=== PATIENT | female | born 1975 | race Caucasian/White ===

== ENCOUNTER 2016-04-17 14:30 | Emergency (ER) | payer OTHER ==
[2016-04-17 14:57] VITALS: RESP 20; TEMP 97.9
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
[2016-04-17] MEDS ORDERED: IBUPROFEN 400 MG TAB PO STA (15:52)
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
[2016-04-17 17:02] VITALS: BP 110/55; PULSE 82
== END 2016-04-17 17:01 | disposition home or self-care (01) ==
LOC: EC 14:30
DX: M25.512 Pain in left shoulder (principal); M54.5 Low back pain; M25.571 Pain in right ankle and joints of right foot; R51 Headache; J45.909 Unspecified asthma, uncomplicated; M79.7 Fibromyalgia; G40.909 Epilepsy, unspecified, not intractable, without status epilepticus; E07.9 Disorder of thyroid, unspecified; F31.9 Bipolar disorder, unspecified; F41.9 Anxiety disorder, unspecified; F41.0 Panic disorder [episodic paroxysmal anxiety]; F43.10 Post-traumatic stress disorder, unspecified; F17.200 Nicotine dependence, unspecified, uncomplicated; Z85.41 Personal history of malignant neoplasm of cervix uteri; Z79.899 Other long term (current) drug therapy; Z88.0 Allergy status to penicillin; Z88.1 Allergy status to other antibiotic agents; Z88.2 Allergy status to sulfonamides; Z88.5 Allergy status to narcotic agent; Z88.8 Allergy status to other drugs, medicaments and biological substances; Z88.6 Allergy status to analgesic agent; Z91.048 Other nonmedicinal substance allergy status; V89.2XXA Person injured in unspecified motor-vehicle accident, traffic, initial encounter; Y92.89 Other specified places as the place of occurrence of the external cause
CPT/HCPCS: 70450; 72050; 72100; 72125; 99284

== ENCOUNTER 2016-05-03 10:35 | Emergency (ER) | payer OTHER ==
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
[2016-05-03 12:31] VITALS: BP 100/61; PULSE 84; RESP 14; TEMP 97.6
== END 2016-05-03 12:32 | disposition home or self-care (01) ==
LOC: EC 10:35
DX: F07.81 Postconcussional syndrome (principal); M79.1 Myalgia; G89.29 Other chronic pain; J45.909 Unspecified asthma, uncomplicated; M79.7 Fibromyalgia; G40.909 Epilepsy, unspecified, not intractable, without status epilepticus; E07.9 Disorder of thyroid, unspecified; F31.9 Bipolar disorder, unspecified; F41.9 Anxiety disorder, unspecified; F41.0 Panic disorder [episodic paroxysmal anxiety]; F43.10 Post-traumatic stress disorder, unspecified; F17.200 Nicotine dependence, unspecified, uncomplicated; Z79.51 Long term (current) use of inhaled steroids; Z79.899 Other long term (current) drug therapy; Z88.0 Allergy status to penicillin; Z88.1 Allergy status to other antibiotic agents; Z88.2 Allergy status to sulfonamides; Z88.5 Allergy status to narcotic agent; Z88.6 Allergy status to analgesic agent; Z91.09 Other allergy status, other than to drugs and biological substances
CPT/HCPCS: 99284

== ENCOUNTER 2018-08-28 14:14 | Emergency (ER) | payer OTHER ==
[2018-08-28 14:23] VITALS: BP 124/41; PULSE 109; RESP 18; TEMP 98.6
[2018-08-28] MEDS ORDERED: SODIUM CHLORIDE 0.9% 1,000 ML IV ONE (15:01)
[2018-08-28] MEDS ORDERED: MORPHINE SULFATE 4 MG/ML SYRINGE IV STA (15:01)
[2018-08-28] MEDS ORDERED: ONDANSETRON 4 MG/2 ML VIAL IVP STA (15:01)
[2018-08-28 15:39] LABS: Basophils % (A) 0 %; Eosinophils # (A) 0.1 k/uL (0-0.7); Eosinophils % (A) 2 %; HCT 41.6 % (34.0-46.0); Lymphocytes # (A) 1.5 k/uL (1.0-4.8); Lymphocytes % (A) 24 %; MCHC 33.7 g/dL (31.0-37.0); MCV 85.9 fL (80.0-100.0); Mean Platelet Volume 7.9; Monocytes # (A) 0.4 k/uL (0-1.0); Monocytes % (A) 6 %; Neutrophils # (A) 4.1 k/uL (1.3-7.7); Neutrophils % (A) 65 %; Platelet Count 221 k/uL (150-450); RBC 4.85 m/uL (3.80-5.40); RDW 14.1 % (11.5-15.5); WBC 6.3 k/uL (3.8-10.6)
[2018-08-28 15:49] LABS: ALT 22 U/L (9-52); AST 24 U/L (14-36); African American GFR (CKD) >90 (>60 ml/min/1.73 sqM); Albumin 3.9 g/dL (3.5-5.0); Alkaline Phosphatase 127 U/L (38-126); Anion Gap 9 mmol/L; Blood Urea Nitrogen 9 mg/dL (7-17); Calcium 9.8 mg/dL (8.4-10.2); Carbon Dioxide 24 mmol/L (22-30); Chloride 107 mmol/L (98-107); Glucose 97 mg/dL (74-99); Potassium 3.9 mmol/L (3.5-5.1); Sodium 140 mmol/L (137-145); Total Bilirubin 0.6 mg/dL (0.2-1.3); Total Protein 6.4 g/dL (6.3-8.2)
[2018-08-28 15:53] LABS: Appearance,Urine Clear (Clear); Bilirubin,Urine Negative (Negative); Blood,Urine Negative (Negative); Color,Urine Light Yellow; Glucose,Urine (UA) Negative (Negative); Ketones,Urine Negative (Negative); Leukocyte Esterase,Urine Negative (Negative); Nitrite,Urine Negative (Negative); Protein,Urine Negative (Negative); Specific Gravity,Urine 1.009 (1.001-1.035); Urobilinogen,Urine <2.0 mg/dL (<2.0)
--- NOTE | 2018-08-28 15:57 | ED ---
General Adult HPI - General Chief complaint: Urogenital Stated complaint: Female /pain Time Seen by Provider: 08/28/18 14:43 Source: patient Mode of arrival: ambulatory Limitations: no limitations - History of Present Illness Initial comments: 42-year-old female patient presents to the emergency department today for evaluation of suprapubic pain. Patient states that she has been having some discomfort over the last 2 days but around 2:00 this morning the pain intensified. Patient states it is sharp stabbing pain to suprapubic region. Patient states the pain is unbearable. States that has caused her to be nauseated but she has not vomited. Patient is status post appendectomy and hysterectomy including cervix. Patient denies any abnormal vaginal bleeding or discharge. Denies any constipation or diarrhea. She has no fever or chills. Patient denies any dyspareunia leading up to the onset of pain. Patient denies any recent rash, fever, chills, shortness breath, chest pain, back pain, numbness, tingling, dizziness, weakness, hematuria, dysuria, urinary urgency, urinary frequency, headache, visual changes, or any other complaints. - Related Data Home Medications Medication Instructions Recorded Confirmed Acyclovir [Zovirax] 400 mg PO BID 06/30/13 05/03/16 Loratadine [Claritin] 10 mg PO HS 06/30/13 05/03/16 rOPINIRole HCL [Requip] 1 mg PO HS 06/30/13 05/03/16 Albuterol Inhaler [Ventolin Hfa 1 - 2 puff INHALATION RT-Q4H PRN 07/14/13 05/03/16 Inhaler] tiZANidine HCL [Zanaflex] 4 - 8 mg PO QID PRN 07/14/13 05/03/16 Cholecalciferol [Vitamin D3 (25 2,000 unit PO DAILY 06/15/14 05/03/16 Mcg = 1000 Iu)] Furosemide [Lasix] 20 mg PO DAILY 12/01/14 05/03/16 Multivitamins, Thera [Multivitamin 1 tab PO DAILY 12/01/14 05/03/16 (formulary)] Omeprazole [PriLOSEC] 20 mg PO AC-BRKFST 12/01/14 05/03/16 Potassium Chloride [Klor-Con 20] 20 meq PO DAILY 12/01/14 05/03/16 oxyCODONE HCL/ACETAMINOPHEN 1 tab PO BID PRN 12/01/14 05/03/16 [Percocet 5-325 mg] Diazepam [Valium] 5 mg PO BID PRN 12/02/14 05/03/16 Gabapentin 400 mg PO TID 12/02/14 05/03/16 Krill/Om-3/Dha/Epa/Phospho/Ast 1 cap PO DAILY 05/31/15 05/03/16 [[place]-3 Krill Oil 300 mg Sfgl] Menthol [Biofreeze] 1 applic TOPICAL DAILY 05/31/15 05/03/16 Pyridoxine [Vitamin B-6] 50 mg PO DAILY 05/31/15 05/03/16 Triamcinolone Acetonide [Nasacort] 1 spray EA NOSTRIL DAILY 05/31/15 05/03/16 Vitamin E (Dl,Tocopheryl Acet) 400 unit PO DAILY 05/31/15 05/03/16 [Vitamin E] lamoTRIgine [LaMICtal] 25 mg PO QID 05/31/15 05/03/16 levETIRAcetam [Keppra] 500 mg PO BID 05/31/15 05/03/16 traMADol HCL [Ultram] 50 mg PO Q4HR PRN 05/31/15 05/03/16 Previous Rx's Medication Instructions Recorded Acetaminophen [Tylenol] 325 mg PO Q4H 5 Days tab 04/17/16 Ibuprofen [Motrin] 200 - 400 mg PO Q6HR 7 Days tab 04/17/16 Hydrocodone/Acetaminophen [[place] 1 each PO Q6HR PRN #10 tab 05/03/16 5-325] Naproxen [EC-Naprosyn] 500 mg PO BID PRN #30 tablet. 08/28/18 Allergies Allergy/AdvReac Type Severity Reaction Status Date / Time ampicillin Allergy Anaphylaxis Verified 08/28/18 14:18 cefaclor [From Ceclor] Allergy Rash/Hives Verified 08/28/18 14:18 Penicillins Allergy Anaphylaxis Verified 08/28/18 14:18 sulfamethoxazole Allergy Unknown Verified 08/28/18 14:18 [From Bactrim] trimethoprim [From Bactrim] Allergy Unknown Verified 08/28/18 14:18 codeine phosphate AdvReac SEVERE Verified 08/28/18 14:18 [From Tylenol-Codeine #3] CONSTIPATION duloxetine HCl AdvReac Confusion Verified 08/28/18 14:18 [From Cymbalta] pregabalin [From Lyrica] AdvReac Confusion Verified 08/28/18 14:18 PAPER TAPE Allergy Swelling,RA Uncoded 05/31/15 10:23 SH TYLENOL #4 AdvReac SEVERE Uncoded 05/31/15 10:23 CONSTIPATION Review of Systems ROS Statement: Those systems with pertinent positive or pertinent negative responses have been documented in the HPI. ROS Other: All systems not noted in ROS Statement are negative. Past Medical History Past Medical History: Asthma, Cancer, Fibromyalgia, Memory Impairment, Seizure Disorder, Thyroid Disorder Additional Past Medical History / Comment(s): GALLSTONES,CERVICAL CANCER,EMPHYSEMA, abscess right breast, chronic falls History of Any Multi-Drug Resistant Organisms: None Reported Past Surgical History: Appendectomy, Hernia Repair, Hysterectomy, Tubal Ligation Additional Past Surgical History / Comment(s): UMBILICAL HERNIA, HEMMO RIODECTOMY, bladder SUSPENSION, Hand surgery bilateral fo, 2015 TUMOR REMOVED FROM NECK Past Anesthesia/Blood Transfusion Reactions: No Reported Reaction Past Psychological History: Anxiety, Bipolar, Depression, Panic Disorder, PTSD Smoking Status: Current every day smoker Past Alcohol Use History: Rare Past Drug Use History: Marijuana - Past Family History Mother Family Medical History: Cancer General Exam Limitations: no limitations General appearance: alert, in no apparent distress, other (This is a well- developed, well-nourished adult female patient in no acute distress. Vital signs upon presentation are temperature 98.6F, pulse 109, respirations 18, blood pressure 124/41, pulse ox 98% on room air.) Eye exam: Present: normal appearance, PERRL, EOMI. Absent: scleral icterus, conjunctival injection, periorbital swelling ENT exam: Present: normal exam, normal oropharynx, mucous membranes moist Respiratory exam: Present: normal lung sounds bilaterally. Absent: respiratory distress, wheezes, rales, rhonchi, stridor Cardiovascular Exam: Present: regular rate, normal rhythm, normal heart sounds. Absent: systolic murmur, diastolic murmur, rubs, gallop, clicks GI/Abdominal exam: Present: soft, tenderness (Suprapubic tenderness), normal bowel sounds, other (Mild guarding). Absent: distended, guarding, rebound, rigid Neurological exam: Present: alert, oriented X3, CN II-XII intact Psychiatric exam: Present: normal affect, normal mood Skin exam: Present: warm, dry, intact, normal color. Absent: rash Course Vital Signs 08/28/18 14:18 Temperature 98.6 F Pulse Rate 109 H Respiratory 18 Rate Blood Pressure 124/41 O2 Sat by Pulse 98 Oximetry Medical Decision Making - Medical Decision Making 42-year-old female patient presents to the emergency department today for evaluation of suprapubic abdominal pain. Physical examination did reveal some suprapubic tenderness. No flank tenderness. Labs reviewed and were unremarkable. Urinalysis shows no sign of infection. Patient is status post hysterectomy including cervix. Pelvic exam was performed and did reveal white vaginal discharge, this was sent for culture. CT abdomen and pelvis was obtained and did show evidence for bladder calculus may be at the UVJ. There is no evidence for hydronephrosis or hydroureter. I did discuss findings and results with the patient. She'll be discharged home with pain medication prescription. She is instructed follow with the primary care physician for recheck as soon as possible. Return parameters were discussed in detail. She verbalizes understanding and agrees this plan. - Lab Data Result diagrams: 08/28/18 15:30 08/28/18 15:30 Lab Results 08/28/18 08/28/18 08/28/18 Range/Units 15:30 15:30 15:30 WBC 6.3 (3.8-10.6) k/uL RBC 4.85 (3.80-5.40) m/uL Hgb 14.0 (11.4-16.0) gm/dL Hct 41.6 (34.0-46.0) % MCV 85.9 (80.0-100.0) fL MCH 29.0 (25.0-35.0) pg MCHC 33.7 (31.0-37.0) g/dL RDW 14.1 (11.5-15.5) % Plt Count 221 (150-450) k/uL Neutrophils % 65 % Lymphocytes % 24 % Monocytes % 6 % Eosinophils % 2 % Basophils % 0 % Neutrophils # 4.1 (1.3-7.7) k/uL Lymphocytes # 1.5 (1.0-4.8) k/uL Monocytes # 0.4 (0-1.0) k/uL Eosinophils # 0.1 (0-0.7) k/uL Basophils # 0.0 (0-0.2) k/uL Sodium 140 (137-145) mmol/L Potassium 3.9 (3.5-5.1) mmol/L Chloride 107 (98-107) mmol/L Carbon Dioxide 24 (22-30) mmol/L Anion Gap 9 mmol/L BUN 9 (7-17) mg/dL Creatinine 0.30 L (0.52-1.04) mg/dL Est GFR (CKD-EPI)AfAm >90 (>60 ml/min/1.73 sqM) Est GFR (CKD-EPI)NonAf >90 (>60 ml/min/1.73 sqM) Glucose 97 (74-99) mg/dL Calcium 9.8 (8.4-10.2) mg/dL Total Bilirubin 0.6 (0.2-1.3) mg/dL AST 24 (14-36) U/L ALT 22 (9-52) U/L Alkaline Phosphatase 127 H (38-126) U/L Total Protein 6.4 (6.3-8.2) g/dL Albumin 3.9 (3.5-5.0) g/dL Urine Color Urine Appearance (Clear) Urine pH (5.0-8.0) Ur Specific Ubly (1.001-1.035) Urine Protein (Negative) Urine Glucose (UA) (Negative) Urine Ketones (Negative) Urine Blood (Negative) Urine Nitrite (Negative) Urine Bilirubin (Negative) Urine Urobilinogen (<2.0) mg/dL Ur Leukocyte Esterase (Negative) Trichomonas Ag (Rapid) Negative (Negative) 08/28/18 Range/Units 15:30 WBC (3.8-10.6) k/uL RBC (3.80-5.40) m/uL Hgb (11.4-16.0) gm/dL Hct (34.0-46.0) % MCV (80.0-100.0) fL MCH (25.0-35.0) pg MCHC (31.0-37.0) g/dL RDW (11.5-15.5) % Plt Count (150-450) k/uL Neutrophils % % Lymphocytes % % Monocytes % % Eosinophils % % Basophils % % Neutrophils # (1.3-7.7) k/uL Lymphocytes # (1.0-4.8) k/uL Monocytes # (0-1.0) k/uL Eosinophils # (0-0.7) k/uL Basophils # (0-0.2) k/uL Sodium (137-145) mmol/L Potassium (3.5-5.1) mmol/L Chloride (98-107) mmol/L Carbon Dioxide (22-30) mmol/L Anion Gap mmol/L BUN (7-17) mg/dL Creatinine (0.52-1.04) mg/dL Est GFR (CKD-EPI)AfAm (>60 ml/min/1.73 sqM) Est GFR (CKD-EPI)NonAf (>60 ml/min/1.73 sqM) Glucose (74-99) mg/dL Calcium (8.4-10.2) mg/dL Total Bilirubin (0.2-1.3) mg/dL AST (14-36) U/L ALT (9-52) U/L Alkaline Phosphatase (38-126) U/L Total Protein (6.3-8.2) g/dL Albumin (3.5-5.0) g/dL Urine Color Light Yellow Urine Appearance Clear (Clear) Urine pH 6.0 (5.0-8.0) Ur Specific Ubly 1.009 (1.001-1.035) Urine Protein Negative (Negative) Urine Glucose (UA) Negative (Negative) Urine Ketones Negative (Negative) Urine Blood Negative (Negative) Urine Nitrite Negative (Negative) Urine Bilirubin Negative (Negative) Urine Urobilinogen <2.0 (<2.0) mg/dL Ur Leukocyte Esterase Negative (Negative) Trichomonas Ag (Rapid) (Negative) - Radiology Data Radiology results: report reviewed, image reviewed CT abdomen and pelvis was obtained with contrast. Report reviewed in its entirety. Impression by Dr. Dangelo shows urinary bladder calculus on the right side. This appears new compared to old exam. This could be at the ureterovesical junction but no hydroureter seen. Disposition Clinical Impression: Suprapubic pain, Bladder calculus Disposition: HOME SELF-CARE Condition: Good Instructions (If sedation given, give patient instructions): Abdominal Pain (ED) Additional Instructions: Increase fluids. Take medication as directed. Follow-up with your primary care physician for recheck in 1-2 days. Return to the emergency department immediately for any new, worsening, or concerning symptoms. Prescriptions: Naproxen [EC-Naprosyn] 500 mg PO BID PRN #30 tablet.dr ZIMMER Reason: Pain Is patient prescribed a controlled substance at d/c from ED?: No Referrals: Chiquita Caba MD [STAFF PHYSICIAN] - 1-2 days Time of Disposition: 17:44
--- NOTE | 2018-08-28 16:53 | CT ---
EXAMINATION TYPE: CT abdomen pelvis w con DATE OF EXAM: 08/28/2018 COMPARISON: 06/23/2011 HISTORY: Pelvic pain CT DLP: 504.6 mGycm Automated exposure control for dose reduction was used. TECHNIQUE: Helical acquisition of images was performed from the lung bases through the pelvis. CONTRAST: Performed without Oral Contrast and with IV Contrast, patient injected with 100 mL of Isovue 300. FINDINGS: Lung bases are clear. There is no pleural effusion. Heart size is normal. Liver spleen pancreas gallbladder appear normal. Bile ducts are not dilated. Stomach appears normal. There is a 1 cm dense calcification or metallic surgical clip at the posterior aspect of the spleen. Unchanged. There is no adrenal mass. Kidneys show satisfactory contrast opacification. There is no hydronephrosi s. Bladder distends smoothly. Ureters are not dilated. There is hysterectomy. There is 5 mm calcifica tion in the posterior urinary bladder on the right side of midline. This could be at the ureterovesic al junction. Right ureter however does not appear dilated and there is normal right-sided renal funct ion. There is no free fluid in the pelvis. There is no inguinal hernia. There is no evidence of a pelvic m ass. Appendix is not seen. There is no sign of thickened appendix. There is no mesenteric edema. There is no ascites or free air. There is no sign of a bowel obstructio n. Lumbar vertebra have normal spacing and alignment. Bony pelvis is intact. There is no evidence of bony destructive process. IMPRESSION: THERE IS URINARY BLADDER CALCULUS ON THE RIGHT SIDE. THIS APPEARS NEW COMPARED TO OLD EXAM. THIS COUL D BE AT THE URETEROVESICAL JUNCTION BUT NO HYDROURETER SEEN.
[2018-08-30 14:04] LABS: N. gonorrhoeae,PCR Negative (Neg,Equiv); Neisseria Source Vagina
[2018-08-30 14:20] LABS: C. trachomatis,PCR Negative (Neg,Equiv); Chlamydia trachomatis Source Vagina
== END 2018-08-28 18:50 | disposition home or self-care (01) ==
LOC: EC 14:14
DX: N21.0 Calculus in bladder (principal); J45.909 Unspecified asthma, uncomplicated; M79.7 Fibromyalgia; G40.909 Epilepsy, unspecified, not intractable, without status epilepticus; F17.200 Nicotine dependence, unspecified, uncomplicated; Z85.41 Personal history of malignant neoplasm of cervix uteri; Z90.49 Acquired absence of other specified parts of digestive tract; Z90.710 Acquired absence of both cervix and uterus; Z98.51 Tubal ligation status; Z98.890 Other specified postprocedural states; Z87.19 Personal history of other diseases of the digestive system; Z79.899 Other long term (current) drug therapy; Z88.1 Allergy status to other antibiotic agents; Z88.0 Allergy status to penicillin; Z88.2 Allergy status to sulfonamides; Z88.5 Allergy status to narcotic agent; Z88.8 Allergy status to other drugs, medicaments and biological substances; Z91.048 Other nonmedicinal substance allergy status; Z88.6 Allergy status to analgesic agent
CPT/HCPCS: 36415; 80053; 85025; 81003; 87808; 87491; 87591; 87070; 87205; 74177; 99284; 96374; 96375; 96361 ×3; J2270; J2405; Q9967

== ENCOUNTER → 2022-12-10 | Outpatient (CLI) | payer OTHER ==
--- NOTE | 2022-12-10 19:01 | CT ---
EXAMINATION TYPE: CT brain wo con CT DLP: 1047.1 mGycm, Automated exposure control for dose reduction was used. DATE OF EXAM: 12/10/2022 5:08 PM COMPARISON: 04/17/2016. CLINICAL INDICATION:Female, 47 years old with history of R20.0 ANESTHESIA OF SKIN, History of MS. Abiola ient had thyroid removed last month and states that she has had low energy levels and dizziness since surgery. TECHNIQUE: Brain: Axial CT images of the brain were obtained with coronal and sagittal reformats created and rev iewed. Contrast used: None. Oral contrast used: None. FINDINGS: Brain: Extra-axial spaces: No abnormal extra-axial fluid collections. Ventricular system: Within normal limits Cerebral parenchyma: No acute intraparenchymal hemorrhage or mass effect. The curran-white junction is well differentiated. Cerebellum: Unremarkable. Mass effect: No evidence of midline shift. Intracranial vasculature: unremarkable Soft tissues: Normal. Calvarium/osseous structures: No depressed skull fracture. Paranasal sinuses and mastoid air cells: Mild scattered paranasal sinus disease. Visualized orbits: Orbital contents are intact. IMPRESSION: No acute intracranial process.
== END | disposition home or self-care (01) ==
LOC: RADCTMAIN 16:50
PROVIDERS: ATTEND Student in an Organized Health Care Education/Training Program
DX: R20.0 Anesthesia of skin (principal)
CPT/HCPCS: 70450

== ENCOUNTER → 2022-12-30 | Outpatient (CLI) | payer OTHER ==
[2022-12-30 13:34] VITALS: BP 103/50; PULSE 82; RESP 16; TEMP 98.3
--- NOTE | 2022-12-30 15:05 | P.PAINPG ---
PQRS Measure Charge Sheet Comment: HISTORY OF PRESENT ILLNESS: A 47 yr old female as a referral from Dr Chun presents today w severe and chronic LBP secondary to DDD, spondylosis and facet arthropathy without myelopathy for evaluation. Pt states pain level is provoked at 6 /10 in intensity, constant, localized in the mid to lower lumbar spine, predominantly axial, achy in character w shooting pain towards the BLEs. Pain is provoked by weight bearing activity. Pain is alleviated by medications (Methadone 50mg QAM at [facility]), repositioning and rest. Oswestry axial pain score at 32. PMH: OA, Asthma, Emphysema, Cervical CA, Fibromyalgia, Memory Impairment, Seizure Disorder, Hypothyroid Disorder, GERD, Gall Stones, Bipolar/ MDD/ Anxiety PSH: Cervical CA, Appendectomy, Umbilical Hernia Repair, Hysterectomy, Tubal Ligation, Thyroidectomy, Hemorrhoidectomy, Bladder Suspension, BL Hand Surgery, Cervical Mass Excision SH: Daily tobacco use, Rare ETOH use, Cannabis use FH: Mo- CA All: See list Meds: See list REVIEW OF ORGAN SYSTEMS: CONSTITUTIONAL: No fevers or chills. No recent weight loss . NEUROLOGICAL: + numbness and tingling along the distal extremities. No seizure disorders or headaches. MUSCULOSKELETAL: + pain PSYCHIATRIC: Denies current depression or suicidal thoughts. Physical Examinations : Constitutional : Cooperative , not in acute distress . Neurologic : Cranial nerve II to XII intact. No focal neurological deficits. Psychiatric : alert & oriented x 3. Matching mood & appropriate affect. Judgment & insight intact. Musculoskeletal : Cervical Spine Motor strength in the deltoid and biceps: Normal right side. Normal Left side Motor strength biceps and the wrist ext ensors: Normal right side . Normal left side Motor strength in the triceps muscle: Normal right side. Normal left side Deep tendon reflexes: Normal at the biceps. Normal at Brachioradialis. Normal at triceps Vertebral body tenderness to deep palpation over Cervical facet loading test: positive bilaterally Spurling test: positive bilaterally Neck distraction test: positive bilaterally Sandhya sign: positive bilaterally Lumbar spine Motor strength lower extremities ,thigh and legs 5/5 Right side , 5/5 Left side Deep tendon reflexes : Normal Knee Jerk. Normal Ankle Jerk Vertebral body tenderness over Jordan Test positive Lumbar facet Loading Test: positive Right / positive Left Range of motion of the lumbar spine Flexion 30 degrees, extension 10 degrees Straight Leg Raise test: Left/ Right positive at degree Micaela test: positive right / positive left. Severe tenderness over the Sacroiliac joint on the Right / Left sides Gaenslen test: positive bilaterally Seated flexion test: positive bilaterally. Sacral spine : Severe tenderness over the Sacroiliac joint: right side / left side Range of motion: Flexion of the lumbar spine <60 degrees Range of motion: Extension of the lumbar spine <20 degrees Gaenslen's Test positive Micaela test: positive right side / left side Thigh Thrust Test Sacral Thrust Test Imaging: None on file Assessment/ Plan : Lumbar DDD Obtaining records. DARIEN form signed and faxed to [facility] in [facility]. PT x 6 wks M51.36, Lumbar x-ray M51.36 May need additional testing if indicated. All questions answered. I have spent greater than 30 minutes on patient care today. Dr Mercado was available by phone for the evaluation of this patient. The time was used to review the medical records including relevant urine studies and Prescription history (MAPs), review of the available imaging, evaluation and examination of the patient, coordination of care with the medical staff and if applicable referring physicians, as well as creation of the medical record PQRS Narrative: Smoking Status Current every day smoker Narcotic Agreement Date Signed 08/27/13 Home Medications: Ambulatory Orders Acyclovir [Zovirax] 400 mg PO BID 06/30/13 Loratadine [Claritin] 10 mg PO HS 06/30/13 rOPINIRole HCL [Requip] 1 mg PO HS 06/30/13 Albuterol Inhaler [Ventolin Hfa Inhaler] 1 - 2 puff INHALATION RT-Q4H PRN 07/14/13 tiZANidine HCL [Zanaflex] 4 - 8 mg PO QID PRN 07/14/13 Cholecalciferol [Vitamin D3 (25 Mcg = 1000 Iu)] 2,000 unit PO DAILY 06/15/14 Furosemide [Lasix] 20 mg PO DAILY 12/01/14 Multivitamins, Thera [Multivitamin (formulary)] 1 tab PO DAILY 12/01/14 Omeprazole [PriLOSEC] 20 mg PO AC-BRKFST 12/01/14 Potassium Chloride [Klor-Con 20] 20 meq PO DAILY 12/01/14 oxyCODONE HCL/ACETAMINOPHEN [Percocet 5-325 mg] 1 tab PO BID PRN 12/01/14 Diazepam [Valium] 5 mg PO BID PRN 12/02/14 Gabapentin 400 mg PO TID 12/02/14 Krill/Om-3/Dha/Epa/Phospho/Ast [[place]-3 Krill Oil 300 mg Sfgl] 1 cap PO DAILY 05/31/15 Menthol [Biofreeze] 1 applic TOPICAL DAILY 05/31/15 Pyridoxine [Vitamin B-6] 50 mg PO DAILY 05/31/15 Triamcinolone Acetonide [Nasacort] 1 spray EA NOSTRIL DAILY 05/31/15 Vitamin E (Dl,Tocopheryl Acet) [Vitamin E] 400 unit PO DAILY 05/31/15 lamoTRIgine [LaMICtal] 25 mg PO QID 05/31/15 levETIRAcetam [Keppra] 500 mg PO BID 05/31/15 traMADol HCL [Ultram] 50 mg PO Q4HR PRN 05/31/15 Acetaminophen [Tylenol] 325 mg PO Q4H 5 Days tab 04/17/16 Ibuprofen [Motrin] 200 - 400 mg PO Q6HR 7 Days tab 04/17/16 Hydrocodone/Acetaminophen [[place] 5-325] 1 each PO Q6HR PRN #10 tab 05/03/16 Naproxen [EC-Naprosyn] 500 mg PO BID PRN #30 tablet. 08/28/18 Controlled Substance Measures - Controlled Substance Measures Is patient prescribed a controlled substance at discharge?: No
== END ==
LOC: PNWHC3 12:14
PROVIDERS: ATTEND Specialist
DX: G89.4 Chronic pain syndrome (principal); J43.9 Emphysema, unspecified; M19.90 Unspecified osteoarthritis, unspecified site; M79.7 Fibromyalgia; E03.9 Hypothyroidism, unspecified; K21.9 Gastro-esophageal reflux disease without esophagitis; F31.9 Bipolar disorder, unspecified; F41.9 Anxiety disorder, unspecified; Z87.19 Personal history of other diseases of the digestive system; Z86.69 Personal history of other diseases of the nervous system and sense organs; Z85.848 Personal history of malignant neoplasm of other parts of nervous tissue; Z88.0 Allergy status to penicillin; Z72.0 Tobacco use; Z88.8 Allergy status to other drugs, medicaments and biological substances; Z88.2 Allergy status to sulfonamides; Z88.1 Allergy status to other antibiotic agents; Z88.5 Allergy status to narcotic agent; Z91.048 Other nonmedicinal substance allergy status; Z79.899 Other long term (current) drug therapy
CPT/HCPCS: 99211

== ENCOUNTER → 2023-04-28 | Outpatient (CLI) | payer OTHER ==
--- NOTE | 2023-04-28 15:30 | XR ---
EXAMINATION TYPE: XR lumbar spine 3V DATE OF EXAM: 04/28/2023 Comparison: 04/17/2016 Clinical History: 47-year-old female M51.36OTHER INTERVERTEBRAL DISC DEGENERATION, LUMB Findings: There is some type of metallic clip projecting at the posterior left upper quadrant. Moderate overall spinal wording. 5 lumbar type vertebral bodies. Vertebral body heights are preserved and alignment i s maintained. Facet arthropathy lower lumbar spine. Impression: Facet arthropathy lower lumbar spine. No vertebral compression collapse or malalignment. Moderate sto ol burden. Some type of metallic clip projecting at the posterior left upper quadrant.
== END | disposition home or self-care (01) ==
LOC: RADXRMAIN 14:37
PROVIDERS: ATTEND Physician Assistant Medical
DX: M47.817 Spondylosis without myelopathy or radiculopathy, lumbosacral region (principal); M51.36 Other intervertebral disc degeneration, lumbar region
CPT/HCPCS: 72100

== ENCOUNTER → 2023-04-28 | Outpatient (CLI) | payer OTHER ==
[2023-04-28 14:05] VITALS: BP 110/66; PULSE 89; RESP 15; TEMP 98.4
--- NOTE | 2023-04-28 14:22 | P.PAINPG ---
PQRS Measure Charge Sheet Comment: HISTORY OF PRESENT ILLNESS: A 47 yr old female presents today w severe and chronic LBP secondary to DDD, spondylosis and facet arthropathy without myelopathy for evaluation. She states she goes to [facility] in [place], [place] who has upped her Methadone to 85mg QAM. Her last dose was this morning. We have submitted DARIEN form to that clinic in Dec 2022 but have no records in her chart. She states she was also hospitalized w "3 heart attacks" recently. She states that she will follow up w Dr Gonsales, her group fitness manager. Pt states pain level is provoked at 6 /10 in intensity, constant, localized in the mid to lower lumbar spine, predominantly axial, achy in character w shooting pain towards the BLEs. Pain is provoked by weight bearing activity. Pain is alleviated by PT x 6 wks total (Dec - Feb), medications, repositioning and rest. Oswestry axial pain score at 32. Interventional procedures include Medications include Methadone 50mg QAM from [facility], Cannabis use REVIEW OF ORGAN SYSTEMS: CONSTITUTIONAL: No fevers or chills. No recent weight loss. NEUROLOGICAL: + numbness and tingling along the distal extremities. No seizure disorders or headaches. MUSCULOSKELETAL: + pain PSYCHIATRIC: Denies current depression or suicidal thoughts. Physical Examinations : Constitutional : Cooperative , not in acute distress . Neurologic : Cranial nerve II to XII intact. No focal neurological deficits. Psychiatric : alert & oriented x 3. Matching mood & appropriate affect. Judgment & insight intact. Musculoskeletal : Cervical Spine Motor strength in the deltoid and biceps: Normal right side. Normal Left side Motor strength biceps and the wrist extensors: Normal right side . Normal left side Motor strength in the triceps muscle: Normal right side. Normal left side Deep tendon reflexes: Normal at the biceps. Normal at Brachioradialis. Normal at triceps Vertebral body tenderness to deep palpation over Cervical facet loading test: positive bilaterally Spurling test: positive bilaterally Neck distraction test: positive bilaterally Sandhya sign: positive bilaterally Lumbar spine Motor strength lower extremities ,thigh and legs 5/5 Right side , 5/5 Left side Deep tendon reflexes : Normal Knee Jerk. Normal Ankle Jerk Vertebral body tenderness over Jordan Test positive Lumbar facet Loading Test: positive Right / positive Left Range of motion of the lumbar spine Flexion 30 degrees, extension 10 degrees Straight Leg Raise test: Left/ Right positive at degree Micaela test: positive right / positive left. Severe tenderness over the Sacroiliac joint on the Right / Left sides Gaenslen test: positive bilaterally Seated flexion test: positive bilaterally. Sacral spine : Severe tenderness over the Sacroiliac joint: right side / left side Range of motion: Flexion of the lumbar spine <60 degrees Range of motion: Extension of the lumbar spine <20 degrees Gaenslen's Test positive Micaela test: positive right side / left side Thigh Thrust Test Sacral Thrust Test Imaging: None on file Assessment/ Plan : Lumbar DDD Awaiting records. Lumbar x ray M51.36 May need additional testing if clinically indicated. All questions answered. I have spent greater than 30 minutes on patient care today. Dr Mercado was available by phone for the evaluation of this patient. The time was used to review the medical records including relevant urine studies and Prescription history (MAPs), review of the available imaging, evaluation and examination of the patient, coordination of care with the medical staff and if applicable referring physicians, as well as creation of the medical record PQRS Narrative: Smoking Status Current every day smoker Narcotic Agreement Date Signed 08/27/13 Hx Alcohol Use (MH) No Home Medications: Ambulatory Orders Acyclovir [Zovirax] 400 mg PO BID 06/30/13 Loratadine [Claritin] 10 mg PO HS 06/30/13 rOPINIRole HCL [Requip] 1 mg PO HS 06/30/13 Albuterol Inhaler [Ventolin Hfa Inhaler] 1 - 2 puff INHALATION RT-Q4H PRN 07/14/13 tiZANidine HCL [Zanaflex] 4 - 8 mg PO QID PRN 07/14/13 Cholecalciferol [Vitamin D3 (25 Mcg = 1000 Iu)] 2,000 unit PO DAILY 06/15/14 Furosemide [Lasix] 20 mg PO DAILY 12/01/14 Multivitamins, Thera [Multivitamin (formulary)] 1 tab PO DAILY 12/01/14 Omeprazole [PriLOSEC] 20 mg PO AC-BRKFST 12/01/14 Potassium Chloride [Klor-Con 20] 20 meq PO DAILY 12/01/14 oxyCODONE HCL/ACETAMINOPHEN [Percocet 5-325 mg] 1 tab PO BID PRN 12/01/14 Diazepam [Valium] 5 mg PO BID PRN 12/02/14 Gabapentin 400 mg PO TID 12/02/14 Krill/Om-3/Dha/Epa/Phospho/Ast [[place]-3 Krill Oil 300 mg Sfgl] 1 cap PO DAILY 05/31/15 Menthol [Biofreeze] 1 applic TOPICAL DAILY 05/31/15 Pyridoxine [Vitamin B-6] 50 mg PO DAILY 05/31/15 Triamcinolone Acetonide [Nasacort] 1 spray EA NOSTRIL DAILY 05/31/15 Vitamin E (Dl,Tocopheryl Acet) [Vitamin E] 400 unit PO DAILY 05/31/15 lamoTRIgine [LaMICtal] 25 mg PO QID 05/31/15 levETIRAcetam [Keppra] 500 mg PO BID 05/31/15 traMADol HCL [Ultram] 50 mg PO Q4HR PRN 05/31/15 Acetaminophen [Tylenol] 325 mg PO Q4H 5 Days tab 04/17/16 Ibuprofen [Motrin] 200 - 400 mg PO Q6HR 7 Days tab 04/17/16 Hydrocodone/Acetaminophen [[place] 5-325] 1 each PO Q6HR PRN #10 tab 05/03/16 Naproxen [EC-Naprosyn] 500 mg PO BID PRN #30 tablet. 08/28/18 Controlled Substance Measures - Controlled Substance Measures Is patient prescribed a controlled substance at discharge?: No
== END ==
LOC: PNWHC3 13:10
PROVIDERS: ATTEND Specialist
DX: M51.36 Other intervertebral disc degeneration, lumbar region (principal); F17.200 Nicotine dependence, unspecified, uncomplicated; Z88.1 Allergy status to other antibiotic agents; Z88.0 Allergy status to penicillin; Z88.8 Allergy status to other drugs, medicaments and biological substances; Z91.048 Other nonmedicinal substance allergy status; Z88.5 Allergy status to narcotic agent; Z88.2 Allergy status to sulfonamides
CPT/HCPCS: 99211

== ENCOUNTER → 2023-05-12 | Outpatient (CLI) | payer OTHER ==
--- NOTE | 2023-05-12 17:48 | CT ---
EXAMINATION TYPE: CT lumbar spine wo con CT DLP: 516.8 mGycm, Automated exposure control for dose reduction was used. DATE OF EXAM: 05/12/2023 5:15 PM COMPARISON: . CLINICAL INDICATION:Female, 47 years old with history of M51.36 OTHER INTERVERTEBRAL DISC DEGENERATIO N, LUM, h/o MS and disc degeneration, pain down both legs and feet TECHNIQUE: Multiple axial images were obtained from the midportion of T11 through the sacroiliac amilcar nts. Soft tissue and bone windows in coronal and sagittal planes were obtained and reviewed. 3-D ref ormats of the bones were created on a separate workstation and submitted for review. Contrast used: mL of , (None, if empty). Oral contrast used: (None, if empty). FINDINGS: Alignment: There are 5 lumbar type vertebral bodies within normal alignment. Bone: No evidence of fracture is identified. Multilevel degeneration changes with osteophyte formati on, disc space narrowing, facet joint arthropathy. Discs: T12-L1: No spinal canal or neural foraminal stenosis is identified. L1-L2: No spinal canal or neural foraminal stenosis is identified. L2-L3: No spinal canal or neural foraminal stenosis is identified. L3-L4: Facet joint arthropathy and disc bulging result with mild spinal canal stenosis and mild bilat eral neural foraminal stenosis. L4-L5: Facet joint arthropathy and disc bulging result with mild spinal canal stenosis and mild bilat eral neural foraminal stenosis. L5-S1: Facet joint arthropathy and disc bulging result with mild spinal canal stenosis and mild bilat eral neural foraminal stenosis. Other: None IMPRESSION: 1. No evidence for spinal fracture. 2. No evidence for significant spinal canal or neural foraminal stenosis.
== END | disposition home or self-care (01) ==
LOC: RADCTMAIN 16:54
PROVIDERS: ATTEND Specialist
DX: M51.36 Other intervertebral disc degeneration, lumbar region (principal)
CPT/HCPCS: 72131

== ENCOUNTER → 2023-06-18 | Outpatient (CLI) | payer OTHER ==
[2023-06-18 11:37] VITALS: BP 114/65; PULSE 75; RESP 16; TEMP 98.2
--- NOTE | 2023-06-18 13:38 | P.PAINPG ---
PQRS Measure Charge Sheet Comment: HISTORY OF PRESENT ILLNESS: A 47 yr old female presents today w severe and chronic LBP > 12 yrs secondary to DDD, spondylosis and facet arthropathy without myelopathy for medication refills. Pt stated she has discontinued Cannabis. Pt states pain level is provoked at 6 /10 in intensity, constant, localized in the mid to lower lumbar spine, predominantly axial, achy in character w shooting pain towards the BLEs. Pain is provoked by weight bearing activity. Pain is alleviated by PT x 6 wks total (Dec - Feb), physician guided exercises daily since Feb 2023, medications, repositioning and rest. Oswestry axial pain score at 31. Interventional procedures include Medications include Methadone 50mg QAM from [place], Hx of Cannabis use REVIEW OF ORGAN SYSTEMS: CONSTITUTIONAL: No fevers or chills. No recent weight loss. NEUROLOGICAL: + numbness and tingling along the distal extremities. No seizure disorders or headaches. MUSCULOSKELETAL: + pain PSYCHIATRIC: Denies current depression or suicidal th oughts. Physical Examinations : Constitutional : Cooperative , not in acute distress . Neurologic : Cranial nerve II to XII intact. No focal neurological deficits. Psychiatric : alert & oriented x 3. Matching mood & appropriate affect. Judgment & insight intact. Musculoskeletal : Cervical Spine Motor strength in the deltoid and biceps: Normal right side. Normal Left side Motor strength biceps and the wrist extensors: Normal right side . Normal left side Motor strength in the triceps muscle: Normal right side. Normal left side Deep tendon reflexes: Normal at the biceps. Normal at Brachioradialis. Normal at triceps Vertebral body tenderness to deep palpation over Cervical facet loading test: positive bilaterally Spurling test: positive bilaterally Neck distraction test: positive bilaterally Sandhya sign: positive bilaterally Lumbar spine Motor strength lower extremities ,thigh and legs 5/5 Right side , 5/5 Left side Deep tendon reflexes : Normal Knee Jerk. Normal Ankle Jerk Vertebral body tenderness over Jordan Test positive Taut bands w twitch response over BL L 2-S1 Lumbar facet Loading Test: positive Right / positive Left Range of motion of the lumbar spine Flexion 30 degrees, extension 10 degrees Straight Leg Raise test: Left/ Right positive at degree Micaela test: positive right / positive left. Severe tenderness over the Sacroiliac joint on the Right / Left sides Gaenslen test: positive bilaterally Seated flexion test: positive bilaterally. Sacral spine : Severe tenderness over the Sacroiliac joint: right side / left side Range of motion: Flexion of the lumbar spine <60 degrees Range of motion: Extension of the lumbar spine <20 degrees Gaenslen's Test positive Micaela test: positive right side / left side Thigh Thrust Test Sacral Thrust Test Imaging: None on file Assessment/ Plan : Lumbar DDD Recommendation of BL L2-S1 TPIs and medication management. May need a series of injections for optimal pain relief. Risks, benefits of procedure discussed and pt verbalized understanding. Methadone tab 20mg TID #60 w 1 RF. Opiate/ Narcotic agreement signed Apr 2023. Will check UDS at next visit. Use, side effects, adverse reactions, safe storage discussed. All questions answered. I have spent greater than 30 minutes on patient care today. Dr Mercado was available by phone for the evaluation of this patient. The time was used to review the medical records including relevant urine studies and Prescription history (MAPs), review of the available imaging, evaluation and examination of the patient, coordination of care with the medical staff and if applicable referring physicians, as well as creation of the medical record - Pain Location Bilateral Medial Back Non-Pharmacological Interventions: Heat, Inactivity PQRS Narrative: Smoking Status Current every day smoker Narcotic Agreement Date Signed 08/27/13 Hx Alcohol Use (MH) No Home Medications: Ambulatory Orders Acyclovir [Zovirax] 400 mg PO BID 06/30/13 Loratadine [Claritin] 10 mg PO HS 06/30/13 rOPINIRole HCL [Requip] 1 mg PO HS 06/30/13 Albuterol Inhaler [Ventolin Hfa Inhaler] 1 - 2 puff INHALATION RT-Q4H PRN 07/14/13 tiZANidine HCL [Zanaflex] 4 - 8 mg PO QID PRN 07/14/13 Cholecalciferol [Vitamin D3 (25 Mcg = 1000 Iu)] 2,000 unit PO DAILY 06/15/14 Furosemide [Lasix] 20 mg PO DAILY 12/01/14 Multivitamins, Thera [Multivitamin (formulary)] 1 tab PO DAILY 12/01/14 Omeprazole [PriLOSEC] 20 mg PO AC-BRKFST 12/01/14 Potassium Chloride [Klor-Con 20] 20 meq PO DAILY 12/01/14 oxyCODONE HCL/ACETAMINOPHEN [Percocet 5-325 mg] 1 tab PO BID PRN 12/01/14 Diazepam [Valium] 5 mg PO BID PRN 12/02/14 Gabapentin 400 mg PO TID 12/02/14 Krill/Om-3/Dha/Epa/Phospho/Ast [[place]-3 Krill Oil 300 mg Sfgl] 1 cap PO DAILY 05/31/15 Menthol [Biofreeze] 1 applic TOPICAL DAILY 05/31/15 Pyridoxine [Vitamin B-6] 50 mg PO DAILY 05/31/15 Triamcinolone Acetonide [Nasacort] 1 spray EA NOSTRIL DAILY 05/31/15 Vitamin E (Dl,Tocopheryl Acet) [Vitamin E] 400 unit PO DAILY 05/31/15 lamoTRIgine [LaMICtal] 25 mg PO QID 05/31/15 levETIRAcetam [Keppra] 500 mg PO BID 05/31/15 traMADol HCL [Ultram] 50 mg PO Q4HR PRN 05/31/15 Acetaminophen [Tylenol] 325 mg PO Q4H 5 Days tab 04/17/16 Ibuprofen [Motrin] 200 - 400 mg PO Q6HR 7 Days tab 04/17/16 Hydrocodone/Acetaminophen [[place] 5-325] 1 each PO Q6HR PRN #10 tab 05/03/16 Naproxen [EC-Naprosyn] 500 mg PO BID PRN #30 tablet. 08/28/18 Methadone HCl 10 mg PO TID 30 Days #180 tab 06/18/23 Methadone HCl 10 mg PO TID 30 Days #180 tab 06/18/23 Controlled Substance Measures - Controlled Substance Measures Is patient prescribed a controlled substance at discharge?: Yes When asked, does pt state using other controlled substances?: No If prescribed controlled substance>3 days was MAPS reviewed?: Yes If Rx opioid, was Start Talking consent form obtained?: Yes Was information provided regarding opioid addiction?: Yes
== END ==
LOC: PNWHC3 10:36
PROVIDERS: ATTEND Specialist
DX: M51.37 Other intervertebral disc degeneration, lumbosacral region (principal); M47.817 Spondylosis without myelopathy or radiculopathy, lumbosacral region; G89.29 Other chronic pain; F17.200 Nicotine dependence, unspecified, uncomplicated; Z88.1 Allergy status to other antibiotic agents; Z88.0 Allergy status to penicillin; Z88.2 Allergy status to sulfonamides; Z88.5 Allergy status to narcotic agent; Z91.048 Other nonmedicinal substance allergy status; Z88.8 Allergy status to other drugs, medicaments and biological substances
CPT/HCPCS: 99211

== ENCOUNTER 2023-06-24 10:57 | Day surgery (SDC) | payer OTHER ==
[2023-06-19 13:50] VITALS: BMI 24.7
[~2023-06-24 10:57] MED LIST: LACTATED RINGERS 1,000 ML IV SCH
[2023-06-24] MEDS ORDERED: ROPIVACAINE 5MG/ML 20ML VIAL ONE (12:06)
[2023-06-24] MEDS ORDERED: methylPREDNISolone ACETATE 40 MG/ML 1 ML VIAL ONE (12:06)
--- NOTE | 2023-06-24 12:09 | P.PCN ---
Date of Procedure: 06/24/23 Surgeon: Jeff Mulligan Pathology: none sent Condition: stable Disposition: PACU Description of Procedure: Name of procedure: Trigger point injection Diagnosis: Myofascial pain Anesthesia: None Description of procedure: The patient was seen in the preop holding area the trigger points were marked on both sides of the lower lumbar spine. the targeted muscles were the paravertebral musculature bilaterally in the lower lumbar spine area at the target points that were marked in the preoperative area..the patient was brought into the procedure room after signing his procedure consent. vital signs were monitored. She was placed in the prone position. Skin was prepped with ChloraPrep. I used 25-gauge 1 and 1/2 inch needle to go through the skin at the marked points and injected 1 mL of a solution made up of 11 MLS of ropivacaine 0.5% +40 mg of Kenalog and 1 mL of the solution was injected at each trigger point with a total of 12 trigger points injected. Patient tolerated procedure well.
[2023-06-24 12:10] VITALS: TEMP 97.8
[2023-06-24 12:55] VITALS: BP 111/56; PULSE 73; RESP 16
== END 2023-06-24 12:45 | disposition home or self-care (01) ==
LOC: ORPAIN 10:57
PROVIDERS: ATTEND Anesthesiology
DX: M79.18 Myalgia, other site (principal)
CPT/HCPCS: 20553; J2795; J1010; 20552

== ENCOUNTER → 2023-08-11 | Outpatient (CLI) | payer OTHER ==
[2023-08-11 11:24] VITALS: BP 114/75; PULSE 83; RESP 16
--- NOTE | 2023-08-11 15:01 | P.PAINPG ---
PQRS Measure Charge Sheet Comment: HISTORY OF PRESENT ILLNESS: A 47 yr old female presents today w severe and chronic LBP > 12 yrs secondary to DDD, spondylosis and facet arthropathy without myelopathy for medication refills and evaluation s/p BL TPI L2-S1 #1. Pt stated she experienced 50 % pain relief x 2 wks s/p procedure. Pt states pain level is provoked at 6 /10 in intensity, constant, localized in the mid to lower lumbar spine, predominantly axial, throbbing in character w shooting pain towards the BLEs L > R. Pain is provoked by weight bearing activity. Pain is alleviated by PT x 6 wks total (Dec - Feb), physician guided exercises daily since Feb 2023, medications, repositioning and rest. Oswestry axial pain score at 31. Interventional procedures include BL TPIs L2-S1 x1 Medications include Methadone 50mg QAM from [place], Hx of Cannabis use REVIEW OF ORGAN SYSTEMS: CONSTITUTIONAL: No fevers or chills. No recent weight loss. NEUROLOGICAL: + numbness and tingling along the distal extremities. No seizure disorders or headaches. MUSCULOSKELETAL: + pain PSYCHIATRIC: Denies current depression or suicidal thoughts. Physical Examinations : Constitutional : Cooperative , not in acute distress . Neurologic : Cranial nerve II to XII intact. No focal neurological deficits. Psychiatric : alert & oriented x 3. Matching mood & appropriate affect. Judgment & insight intact. Musculoskeletal : Cervical Spine Motor strength in the deltoid and biceps: Normal right side. Normal Left side Motor strength biceps and the wrist extensors: Normal right side . Normal left side Motor strength in the triceps muscle: Normal right side. Normal left side Deep tendon reflexes: Normal at the biceps. Normal at Brachioradialis. Normal at triceps Vertebral body tenderness to deep palpation over Cervical facet loading test: positive bilaterally Spurling test: positive bilaterally Neck distraction test: positive bilaterally Sandhya sign: positive bilaterally Lumbar spine Motor strength lower extremities ,thigh and legs 5/5 Right side , 5/5 Left side Deep tendon reflexes : Normal Knee Jerk. Normal Ankle Jerk Vertebral body tenderness over Jordan Test positive Taut bands w twitch response over BL L2-S1 Lumbar facet Loading Test: positive Right / positive Left Range of motion of the lumbar spine Flexion 30 degrees, extension 10 degrees Straight Leg Raise test: Left/ Right positive at degree Micaela test: positive right / positive left. Severe tenderness over the Sacroiliac j oint on the Right / Left sides Gaenslen test: positive bilaterally Seated flexion test: positive bilaterally. Sacral spine : Severe tenderness over the Sacroiliac joint: right side / left side Range of motion: Flexion of the lumbar spine <60 degrees Range of motion: Extension of the lumbar spine <20 degrees Gaenslen's Test positive Micaela test: positive right side / left side Thigh Thrust Test Sacral Thrust Test Imaging: None on file Assessment/ Plan : Lumbar DDD Recommendation of medication management. Methadone tab 10mg TID (2 tabs PO TID) #180 w 1 RF. Opiate/ Narcotic agreement signed 04/30/23. UDS pending. Use, side effects, adverse reactions, safe storage discussed. All questions answered. I have spent greater than 30 minutes on patient care today. Dr Mercado was available by phone for the evaluation of this patient. The time was used to review the medical records including relevant urine studies and Prescription history (MAPs), review of the available imaging, evaluation and examination of the patient, coordination of care with the medical staff and if applicable referring physicians, as well as creation of the medical record - Pain Location Lower Back Pharmacological Interventions: Medication PQRS Narrative: Smoking Status Current every day smoker Narcotic Agreement Date Signed 08/27/13 Hx Alcohol Use (MH) No Home Medications: Ambulatory Orders Acyclovir [Zovirax] 400 mg PO BID 06/30/13 Albuterol Inhaler [Ventolin Hfa Inhaler] 1 - 2 puff INHALATION RT-Q4H PRN 07/14/13 Cholecalciferol [Vitamin D3 (25 Mcg = 1000 Iu)] 2,000 unit PO DAILY 06/15/14 Multivitamins, Thera [Multivitamin (formulary)] 1 tab PO DAILY 12/01/14 Omeprazole [PriLOSEC] 20 mg PO AC-BRKFST 12/01/14 lamoTRIgine [LaMICtal] 25 mg PO QID 05/31/15 levETIRAcetam [Keppra] 500 mg PO BID 05/31/15 Acetaminophen [Tylenol Extra Strength] 1,000 mg PO Q8H PRN 06/19/23 Albuterol Inhaler [Ventolin Hfa Inhaler] 1 - 2 puff INHALATION Q6H PRN 06/19/23 Amitriptyline HCl [Elavil] 100 mg PO HS 06/19/23 Aspirin EC [Ecotrin Low Dose] 81 mg PO DAILY 06/19/23 Budesonide/Formoterol Fumarate [Symbicort 160-4.5 Mcg Inhaler] 1 puff INHALATION DAILY 06/19/23 Cetirizine HCl [Zyrtec] 10 mg PO DAILY 06/19/23 Ergocalciferol [Vitamin D2 (1250 Mcg = 76151 Iu)] 1,250 mcg PO WE 06/19/23 Levothyroxine Sodium [Euthyrox] 137 mcg PO DAILY 06/19/23 atenoloL [Tenormin] 25 mg PO DAILY 06/19/23 busPIRone HCl [Buspar] 10 mg PO TID 06/19/23 lisinopriL [Zestril] 10 mg PO DAILY 06/19/23 rOPINIRole HCL [Requip] 2 mg PO HS 06/19/23 Methadone HCl 10 mg PO TID 30 Days #180 tab 08/11/23 Methadone HCl 10 mg PO TID 30 Days #180 tab 08/11/23 Controlled Substance Measures - Controlled Substance Measures Is patient prescribed a controlled substance at discharge?: Yes When asked, does pt state using other controlled substances?: No If prescribed controlled substance>3 days was MAPS reviewed?: Yes
== END ==
LOC: PNWHC3 10:16
PROVIDERS: ATTEND Specialist
DX: M51.37 Other intervertebral disc degeneration, lumbosacral region (principal); M47.817 Spondylosis without myelopathy or radiculopathy, lumbosacral region; F17.200 Nicotine dependence, unspecified, uncomplicated; Z88.1 Allergy status to other antibiotic agents; Z88.0 Allergy status to penicillin; Z88.8 Allergy status to other drugs, medicaments and biological substances; Z88.2 Allergy status to sulfonamides; Z91.048 Other nonmedicinal substance allergy status; Z88.5 Allergy status to narcotic agent
CPT/HCPCS: 99211

== ENCOUNTER 2023-08-27 17:35 | Inpatient (IN) | payer OTHER ==
--- NOTE | 2023-08-27 19:44 | ED ---
Back Pain HPI - General Chief Complaint: Back Pain/Injury Stated Complaint: Hip and back pain, numbness Time Seen by Provider: 08/27/23 19:14 Source: patient Limitations: no limitations - History of Present Illness Initial Comments: 47-year-old female with a past medical history significant for MS and chronic low back pain secondary to degenerative disc disease, spondylosis, facet arthropathy without myelopathy on methadone from [place] with an opioid/narcotic agreement presenting to the ED with complaints of lower back pain/hip pain. Patient denies any recent injury or trauma. Follows with Dr. Mercado of pain management. Does not follow with orthopedics. Patient states over the past few weeks has developed worsening pain of her lower back and hips. Also notes approximately 2 weeks ago started to experience paresthesias of her left lower extremity beginning in her toes week or so now started to experience paresthesias right lower extremity as well. Patient notes a longstanding history of urinary incontinence however she reports that she has been struggling to hold her urine in more in the the past few weeks as well. Denies bowel incontinence. Denies saddle anesthesia. Of note, patient reports she has leftover clips from surgery in her abdomen and at [facility] unsure if she can have MRI secondary to this. Patient states that she is less worried about the pain then she is worried about the paresthesias. - Related Data Home Medications Medication Instructions Recorded Confirmed Acyclovir [Zovirax] 400 mg PO BID 06/30/13 08/11/23 Albuterol Inhaler [Ventolin Hfa 1 - 2 puff INHALATION RT-Q4H PRN 07/14/13 08/11/23 Inhaler] Cholecalciferol [Vitamin D3 (25 2,000 unit PO DAILY 06/15/14 08/11/23 Mcg = 1000 Iu)] Multivitamins, Thera [Multivitamin 1 tab PO DAILY 12/01/14 08/11/23 (formulary)] Omeprazole [PriLOSEC] 20 mg PO AC-BRKFST 12/01/14 08/11/23 lamoTRIgine [LaMICtal] 25 mg PO QID 05/31/15 08/11/23 levETIRAcetam [Keppra] 500 mg PO BID 05/31/15 08/11/23 Acetaminophen [Tylenol Extra 1,000 mg PO Q8H PRN 06/19/23 08/11/23 Strength] Albuterol Inhaler [Ventolin Hfa 1 - 2 puff INHALATION Q6H PRN 06/19/23 08/11/23 Inhaler] Amitriptyline HCl [Elavil] 100 mg PO HS 06/19/23 08/11/23 Aspirin EC [Ecotrin Low Dose] 81 mg PO DAILY 06/19/23 08/11/23 Budesonide/Formoterol Fumarate 1 puff INHALATION DAILY 06/19/23 08/11/23 [Symbicort 160-4.5 Mcg Inhaler] Cetirizine HCl [Zyrtec] 10 mg PO DAILY 06/19/23 08/11/23 Ergocalciferol [Vitamin D2 (1250 1,250 mcg PO WE 06/19/23 08/11/23 Mcg = 97910 Iu)] Levothyroxine Sodium [Euthyrox] 137 mcg PO DAILY 06/19/23 08/11/23 atenoloL [Tenormin] 25 mg PO DAILY 06/19/23 08/11/23 busPIRone HCl [Buspar] 10 mg PO TID 06/19/23 08/11/23 lisinopriL [Zestril] 10 mg PO DAILY 06/19/23 08/11/23 rOPINIRole HCL [Requip] 2 mg PO HS 06/19/23 08/11/23 Previous Rx's Medication Instructions Recorded Methadone HCl 20 mg PO TID 30 Days #90 tab 08/18/23 Methadone HCl 20 mg PO TID 30 Days #90 tablet 08/18/23 Allergies Allergy/AdvReac Type Severity Reaction Status Date / Time ampicillin Allergy Anaphylaxis Verified 08/27/23 17:45 cefaclor [From Ceclor] Allergy Rash/Hives Verified 08/27/23 17:45 Penicillins Allergy Anaphylaxis Verified 08/27/23 17:45 sulfamethoxazole Allergy Unknown Verified 08/27/23 17:45 [From Bactrim] trimethoprim [From Bactrim] Allergy Unknown Verified 08/27/23 17:45 codeine phosphate AdvReac SEVERE Verified 08/27/23 17:45 [From Tylenol-Codeine #3] CONSTIPATION duloxetine HCl AdvReac Confusion Verified 08/27/23 17:45 [From Cymbalta] pregabalin [From Lyrica] AdvReac Confusion Verified 08/27/23 17:45 PAPER TAPE Allergy Swelling,RA Uncoded 08/11/23 10:43 SH TYLENOL #4 AdvReac SEVERE Uncoded 08/11/23 10:43 CONSTIPATION Review of Systems ROS Statement: Those systems with pertinent positive or pertinent negative responses have been documented in the HPI. ROS Other: All systems not noted in ROS Statement are negative. Past Medical History Past Medical History: Asthma, Cancer, CVA/TIA, Fibromyalgia, GERD/Reflux, Hypertension, Memory Impairment, Seizure Disorder, Thyroid Disorder Additional Past Medical History / Comment(s): GALLSTONES,CERVICAL CANCER,EMPHYSEMA, chronic falls, GRAVE'S DISEASE, TIA 2011, MS, THYROID EYE DISE ASE, DDD History of Any Multi-Drug Resistant Organisms: None Reported Past Surgical History: Appendectomy, Bladder Surgery, Hernia Repair, Hysterectom y, Orthopedic Surgery, Tubal Ligation Additional Past Surgical History / Comment(s): UMBILICAL HERNIA, HEMORRIODECTOMY, bladder SUSPENSION, Hand surgery bilateral , 2014 TUMOR REMOVED FROM NECK, THYROIDECTOMY, LT SHOULDER ROTATOR CUFF REPAIR-HAS PIN, CYST REMOVED FROM RT BREAST, COLONOSCOPY/EGD Past Anesthesia/Blood Transfusion Reactions: No Reported Reaction Past Psychological History: Anxiety, Bipolar, Depression, Panic Disorder, PTSD Smoking Status: Current every day smoker Past Alcohol Use History: None Reported Past Drug Use History: None Reported, Marijuana - Past Family History Mother Family Medical History: Cancer General Exam Limitations: no limitations General appearance: alert, in no apparent distress Eye exam: Present: normal appearance Neck exam: Present: normal inspection Respiratory exam: Present: normal lung sounds bilaterally Cardiovascular Exam: Present: regular rate GI/Abdominal exam: Present: soft, normal bowel sounds. Absent: distended, tenderness, guarding, rebound, rigid Rectal exam: Present: other (Exam chaperoned by Paulette WASHBURN, did show somewhat decreased rectal tone.) Extremities exam: Present: other (Strength and sensation intact in bilateral lower extremities. Patient noted some decrease sensation in the webspace between the left first and second toe.) Neurological exam: Present: alert, oriented X3 Skin exam: Present: warm, dry Course Vital Signs 08/27/23 17:42 Temperature 98.9 F Pulse Rate 71 Respiratory 18 Rate Blood Pressure 122/74 O2 Sat by Pulse 93 L Oximetry Medical Decision Making - Medical Decision Making Was pt. sent in by a medical professional or institution (NACHO Paz, VACUUM CLEANER MECHANIC, urgent care, hospital, or correction...) When possible be specific @ -No Did you speak to anyone other than the patient for history (EMS, parent, family, police, friend...)? What history was obtained from this source @ -No Did you review nursing and triage notes (agree or disagree)? Why? @ -I reviewed and agree with nursing and triage notes Were old charts reviewed (outside hosp., previous admission, EMS record, old EKG, old radiological studies, urgent care reports/EKG's, correction records)? Report findings @ -No old charts were reviewed Differential Diagnosis (chest pain, altered mental status, abdominal pain women, abdominal pain men, vaginal bleeding, weakness, fever, dyspnea, syncope, headache, dizziness, GI bleed, back pain, seizure, CVA, palpatations, mental health, musculoskeletal)? @ -Differential Musculoskeletal Muscular strain, contusion, ligament sprain, fracture, arthritis, septic arthritis, bursitis, cellulitis, muscle spasm, nerve compression, DVT, arterial occlusion, herpes zoster, electrolyte abnormality, tumor.... This is not meant to be in all inclusive list EKG interpreted by me (3pts min.). @ -None X-rays interpreted by me (1pt min.). @ -None done CT interpreted by me (1pt min.). @ -CT of the lumbar spine pending. U/S interpreted by me (1pt. min.). @ -None done What testing was considered but not performed or refused? (CT, X-rays, U/S, labs)? Why? @ -None What meds were considered but not given or refused? Why? @ -None Did you discuss the management of the patient with other professionals (professionals i.e. NACHO Paz, V[employer] CLEANER MECHANIC, lab, RT, psych nurse, social work supervisor, global marketing coordinator, teacher, transit authority police officer, watch case polisher)? Give summary @ -Case discussed with Bailey, who accepts admission under [facility]. Was smoking cessation discussed for >3mins.? @ -No Was critical care preformed (if so, how long)? @ -No Were there social determinants of health that impacted care today? How? (Homelessness, low income, unemployed, alcoholism, drug addiction, transportation, low edu. Level, literacy, decrease access to med. care, senior care, rehab)? @ -No Was there de-escalation of care discussed even if they declined (Discuss DNR or withdrawal of care, Hospice)? DNR status @ -No What co-morbidities impacted this encounter? (DM, HTN, Smoking, COPD, CAD, Cancer, CVA, ARF, Chemo, Hep., AIDS, mental health diagnosis, sleep apnea, morbid obesity)? @ -MS, chronic back pain Was patient admitted / discharged? Hospital course, mention meds given and route, prescriptions, significant lab abnormalities, going to OR and other pertinent info. @ -Admission 47-year-old female presenting to the ED with complaints of increasing back and hip pain compared to history of chronic back pain and also now notes paresthesias of bilateral lower extremities. Patient also does note a long history of urinary incontinence however states recently has been having increasing issues and states that sometimes she is unable to control her urine and urinates on herself. Patient will be admitted with consults to her painter assistant, additional consults to orthopedics and neurology. Patient started on IV steroids at this time. Undiagnosed new problem with uncertain prognosis? @ -No Drug Therapy requiring intensive monitoring for toxicity (Heparin, Nitro, Insulin, Cardizem)? @ -No Were any procedures done? @ -No Diagnosis/symptom? @ -Back pain, paresthesias Acute, or Chronic, or Acute on Chronic? @ -Acute Uncomplicated (without systemic symptoms) or Complicated (systemic symptoms)? @ -Complicated Side effects of treatment? @ -No Exacerbation, Progression, or Severe Exacerbation? @ -No Poses a threat to life or bodily function? How? (Chest pain, [place], [place], pneumonia, PE, COPD, DKA, ARF, appy, cholecystitis, CVA, Diverticulitis, Homicidal, Suicidal, threat to staff... and all critical care pts) @ -Possibly - Lab Data Result diagrams: 08/27/23 19:52 08/27/23 19:52 Lab Results 08/27/23 08/27/23 08/27/23 Range/Units 19:52 19:52 19:52 WBC 11.9 H (3.8-10.6) k/uL RBC 4.25 (3.80-5.40) m/uL Hgb 13.8 (11.4-16.0) gm/dL Hct 41.2 (34.0-46.0) % MCV 97.1 (80.0-100.0) fL MCH 32.4 (25.0-35.0) pg MCHC 33.4 (31.0-37.0) g/dL RDW 12.3 (11.5-15.5) % Plt Count 285 (150-450) k/uL MPV 8.1 Neutrophils % 73 % Lymphocytes % 20 % Monocytes % 5 % Eosinophils % 1 % Basophils % 0 % Neutrophils # 8.6 H (1.3-7.7) k/uL Lymphocytes # 2.4 (1.0-4.8) k/uL Monocytes # 0.6 (0-1.0) k/uL Eosinophils # 0.1 (0-0.7) k/uL Basophils # 0.0 (0-0.2) k/uL Sodium 139 (137-145) mmol/L Potassium 4.2 (3.5-5.1) mmol/L Chloride 104 (98-107) mmol/L Carbon Dioxide 34 H (22-30) mmol/L Anion Gap 1 mmol/L BUN 10 (7-17) mg/dL Creatinine 0.60 (0.52-1.04) mg/dL Est GFR (CKD-EPI)AfAm >90 (>60 ml/min/1.73 sqM) Est GFR (CKD-EPI)NonAf >90 (>60 ml/min/1.73 sqM) Glucose 126 H (74-99) mg/dL Calcium 9.2 (8.4-10.2) mg/dL Total Bilirubin 0.2 (0.2-1.3) mg/dL AST 26 (14-36) U/L ALT 24 (4-34) U/L Alkaline Phosphatase 75 (38-126) U/L Total Protein 6.5 (6.3-8.2) g/dL Albumin 4.1 (3.5-5.0) g/dL Urine Color Colorless Urine Appearance Clear (Clear) Urine pH 5.5 (5.0-8.0) Ur Specific [place] 1.014 (1.001-1.035) Urine Protein Negative (Negative) Urine Glucose (UA) Negative (Negative) Urine Ketones Negative (Negative) Urine Blood Negative (Negative) Urine Nitrite Negative (Negative) Urine Bilirubin Negative (Negative) Urine Urobilinogen <2.0 (<2.0) mg/dL Ur Leukocyte Esterase Negative (Negative) Disposition Clinical Impression: Back pain Disposition: ADMITTED IP TO THIS HOSP Condition: Good Referrals: April Chun [Primary Care Provider] - 1-2 days Time of Disposition: 21:36
[2023-08-27 20:53] LABS: Basophils % (A) 0 %; Eosinophils # (A) 0.1 k/uL (0-0.7); Eosinophils % (A) 1 %; HCT 41.2 % (34.0-46.0); HGB 13.8 gm/dL (11.4-16.0); Lymphocytes # (A) 2.4 k/uL (1.0-4.8); Lymphocytes % (A) 20 %; MCH 32.4 pg (25.0-35.0); MCHC 33.4 g/dL (31.0-37.0); MCV 97.1 fL (80.0-100.0); Mean Platelet Volume 8.1; Monocytes # (A) 0.6 k/uL (0-1.0); Monocytes % (A) 5 %; Neutrophils # (A) 8.6 k/uL (1.3-7.7); Neutrophils % (A) 73 %; Platelet Count 285 k/uL (150-450); RBC 4.25 m/uL (3.80-5.40); RDW 12.3 % (11.5-15.5); WBC 11.9 k/uL (3.8-10.6)
[2023-08-27 20:54] LABS: ALT 24 U/L (4-34); AST 26 U/L (14-36); African American GFR (CKD) >90 (>60 ml/min/1.73 sqM); Albumin 4.1 g/dL (3.5-5.0); Alkaline Phosphatase 75 U/L (38-126); Anion Gap 1 mmol/L; Blood Urea Nitrogen 10 mg/dL (7-17); Calcium 9.2 mg/dL (8.4-10.2); Carbon Dioxide 34 mmol/L (22-30); Chloride 104 mmol/L (98-107); Glucose 126 mg/dL (74-99); Non-African American GFR(CKD) >90 (>60 ml/min/1.73 sqM); Potassium 4.2 mmol/L (3.5-5.1); Sodium 139 mmol/L (137-145); Total Bilirubin 0.2 mg/dL (0.2-1.3); Total Protein 6.5 g/dL (6.3-8.2)
[2023-08-27 21:05] LABS: Appearance,Urine Clear (Clear); Bilirubin,Urine Negative (Negative); Blood,Urine Negative (Negative); Color,Urine Colorless; Glucose,Urine (UA) Negative (Negative); Ketones,Urine Negative (Negative); Leukocyte Esterase,Urine Negative (Negative); Nitrite,Urine Negative (Negative); PH, Urine 5.5 (5.0-8.0); Protein,Urine Negative (Negative); Specific Gravity,Urine 1.014 (1.001-1.035); Urobilinogen,Urine <2.0 mg/dL (<2.0)
[2023-08-27] MEDS ORDERED: NALOXONE 0.4 MG/ML 1 ML VIAL IV PRN (21:37)
[2023-08-27] MEDS ORDERED: ACETAMINOPHEN TAB 325 MG TAB PO PRN (21:37)
[2023-08-27] MEDS: DEXTROSE 5%-0.45% NACL 1,000 ML IV SCH (22:05)
[2023-08-27] MEDS: KETOROLAC 15 MG/ML 1 ML VIAL IVP STA (22:06)
[2023-08-27] MEDS: methylPREDNISolone SOD SUCCI 125 MG/2 ML VIAL IV STA (22:07)
--- NOTE | 2023-08-27 22:09 | CT ---
EXAMINATION TYPE: CT lumbar spine wo con CT DLP: 927.3 mGycm, Automated exposure control for dose reduction was used. DATE OF EXAM: 08/27/2023 8:27 PM COMPARISON: CT lumbar spine 05/12/2023. CLINICAL INDICATION:Female, 47 years old with history of low back pain paresthesias; PHH, low back pa in paresthesias TECHNIQUE: CT of the lumbar spine was performed without contrast. Multiplanar soft tissue and bone windows were obtained and reviewed. . FINDINGS: Alignment: There are 5 lumbar type vertebral bodies with normal height and AP alignment. Stable trace levocurvature of the lower lumbar spine. Bone: No evidence of fracture is identified. Minimal degeneration changes with osteophyte formation, disc space narrowing, facet joint arthropathy. Discs: T12-L1: No spinal canal or neural foraminal stenosis is identified. L1-L2: No spinal canal or neural foraminal stenosis is identified. L2-L3: No spinal canal or neural foraminal stenosis is identified. L3-L4: Mild facet joint arthropathy and broad-based disc bulging causing mild spinal canal stenosis a nd mild bilateral neural foraminal stenosis. L4-L5: Mild facet joint arthropathy and broad-based disc bulging causing mild spinal canal stenosis a nd mild bilateral neural foraminal stenosis. L5-S1: Mild facet joint arthropathy and broad-based disc bulging causing mild spinal canal stenosis a nd mild bilateral neural foraminal stenosis. Other: Visualized upper sacrum is unremarkable. Visualized soft tissues show no acute abnormalities. There is mild to moderate calcification of the abdominal aorta and iliac arteries. Included lung base s are clear. IMPRESSION: 1. No evidence of lumbar spine fracture or traumatic malalignment. 2. Mild lumbar spondylosis without evidence for significant spinal canal or neural foraminal stenosis .
[2023-08-28] MEDS: IBUPROFEN 400 MG TAB PO PRN (00:02)
[2023-08-28] MEDS: methylPREDNISolone SOD SUCCI 125 MG/2 ML VIAL IV SCH (06:08)
[2023-08-28] MEDS: KETOROLAC 15 MG/ML 1 ML VIAL IVP PRN (06:23)
[2023-08-28] MEDS: METHADONE 10 MG TAB PO SCH (09:28)
--- NOTE | 2023-08-28 12:21 | P.CNOR ---
History of Present Illness - [facility] Consult date: 08/28/23 Consult reason: low back pain History of present illness: Patient is a 47-year-old female who presented to [facility] emergency room on 08/27/2023 with worsening low back pain and lower extremity p aresthesias. Patient was admitted to the hospital under internal medicine, multiple consults have been placed for pain management, neurology and our orthopedic group. Patient was evaluated at bedside, she is resting in her hospital bed. Patient has a relatively complicated history with regards to her low back pain. She states that she has had pain for over 20 years. [facility] and undergone multiple procedures, this to include trigger point injections, epidural injections. She is currently being followed by the pain management group at [facility]. Patient has been with them for the last 6 months or so. She had a recent series of trigger point injections in June 2023. She does have a history of drug abuse this to include opioids and methamphetamines. She is currently on a pain contract with the pain management group at [facility] and utilizing methadone. Patient denies any previous spine surgery, this to include cervical, thoracic or lumbar surgery. She has had bilateral carpal tunnel surgery. Patient states she is dealt with the low back pain for many years. The paresthesias in the lower extremities are newer, she is dealt with numbness and tingling in the right thigh over the last week or so, she stated it started in her bilateral feet about 3 to 4 weeks ago. She states that it is a constant numbness. She denies any shooting pain that radiates down the bilateral legs. She denies any upper extremity symptoms, this to include weakness or paresthesias. Patient denies any loss of bowel function. She denies any genital or perineal numbness or tingling. She has had issues with urinary incontinence for many years, started after her hysterectomy. When asking the patient if she has had a lumbar MRI she states that she has, she cannot remember when her last one was. Patient apparently has also been diagnosed with MS, she has seen a few different neurologist in the area and is currently not being followed by anyone at this time. She has overall history of fibromyalgia and restless leg syndrome. Review of Systems Constitutional: Reports as per HPI Past Medical History Past Medical History: Asthma, Cancer, CVA/TIA, Fibromyalgia, GERD/Reflux, Hypertension, Memory Impairment, Seizure Disorder, Thyroid Disorder Additional Past Medical History / Comment(s): GALLSTONES,CERVICAL CANCER,EMPHYSEMA, chronic falls, GRAVE'S DISEASE, TIA 2012, MS, THYROID EYE DISEASE, DDD History of Any Multi-Drug Resistant Organisms: None Reported Past Surgical History: Appendectomy, Bladder Surgery, Hernia Repair, Hysterectomy, Orthopedic Surgery, Tubal Ligation Additional Past Surgical History / Comment(s): UMBILICAL HERNIA, HEMORRIODECTOMY, bladder SUSPENSION, Hand surgery bilateral , 2014 TUMOR REMOVED FROM NECK, THYROIDECTOMY, LT SHOULDER ROTATOR CUFF REPAIR-HAS PIN, CYST REMOVED FROM RT BREAST, COLONOSCOPY/EGD Past Anesthesia/Blood Transfusion Reactions: No Reported Reaction Past Psychological History: Anxiety, Bipolar, Depression, Panic Disorder, PTSD Smoking Status: Current every day smoker Past Alcohol Use History: None Reported Additional Past Alcohol Use History / Comment(s): STARTED SMOKING AGE 13-SMOKING 1 PPD Past Drug Use History: None Reported, Marijuana Additional Drug Use History / Comment(s): last used Marijuana approx. July of 2020 - Past Family History Mother Family Medical History: Cancer, Seizure Disorder Additional Family Medical History / Comment(s): Epilepsy Father Family Medical History: Cancer, Thyroid Disorder Additional Family Medical History / Comment(s): Skin cancer Brother(s) Family Medical History: Seizure Disorder Additional Family Medical History / Comment(s): Epilepsy Medications and Allergies Home Medications Medication Instructions Recorded Confirmed Type Acyclovir [Zovirax] 400 mg PO DAILY 06/30/13 08/28/23 History Albuterol Inhaler [Ventolin Hfa 2 puff INHALATION RT-Q6H PRN 07/14/13 08/28/23 History Inhaler] Multivitamins, Thera [Multivitamin 1 tab PO DAILY 12/01/14 08/28/23 History (formulary)] lamoTRIgine [LaMICtal] 50 mg PO BID 05/31/15 08/28/23 History levETIRAcetam [Keppra] 500 mg PO Q12H 05/31/15 08/28/23 History Acetaminophen [Tylenol Extra 1,000 mg PO Q8H PRN 06/19/23 08/28/23 History Strength] Amitriptyline HCl [Elavil] 100 mg PO HS 06/19/23 08/28/23 History Aspirin EC [Ecotrin Low Dose] 81 mg PO DAILY 06/19/23 08/28/23 History Budesonide/Formoterol Fumarate 2 puff INHALATION RT-BID 06/19/23 08/28/23 History [Symbicort 160-4.5 Mcg Inhaler] Cetirizine HCl [Zyrtec] 10 mg PO DAILY 06/19/23 08/28/23 History Ergocalciferol [Vitamin D2 (1250 1,250 mcg PO WE 06/19/23 08/28/23 History Mcg = 88601 Iu)] Levothyroxine Sodium [Euthyrox] 137 mcg PO DAILY 06/19/23 08/28/23 History atenoloL [Tenormin] 25 mg PO DAILY 06/19/23 08/28/23 History busPIRone HCl [Buspar] 10 mg PO TID 06/19/23 08/28/23 History lisinopriL [Zestril] 10 mg PO DAILY 06/19/23 08/28/23 History rOPINIRole HCL [Requip] 2 mg PO HS 06/19/23 08/28/23 History Methadone HCl 20 mg PO TID 30 Days #90 tablet 08/18/23 08/28/23 Rx Fluticasone Nasal [place] [Flonase 1 spray EA NOSTRIL DAILY 08/28/23 08/28/23 History Nasal [place]] Ibuprofen [Motrin] 800 mg PO Q6H 08/28/23 08/28/23 History Omeprazole [PriLOSEC] 40 mg PO DAILY 08/28/23 08/28/23 History Orphenadrine [Norflex] 100 mg PO Q12H PRN 08/28/23 08/28/23 History Allergies Allergy/AdvReac Type Severity Reaction Status Date / Time ampicillin Allergy Anaphylaxis Verified 08/28/23 11:02 cefaclor [From Ceclor] Allergy Rash/Hives Verified 08/28/23 11:02 Penicillins Allergy Anaphylaxis Verified 08/28/23 11:02 sulfamethoxazole Allergy Unknown Verified 08/28/23 11:02 [From Bactrim] trimethoprim [From Bactrim] Allergy Unknown Verified 08/28/23 11:02 codeine phosphate AdvReac SEVERE Verified 08/28/23 11:02 [From Tylenol-Codeine #3] CONSTIPATION duloxetine HCl AdvReac Confusion Verified 08/28/23 11:02 [From Cymbalta] pregabalin [From Lyrica] AdvReac Confusion Verified 08/28/23 11:02 PAPER TAPE Allergy Swelling,RA Uncoded 08/28/23 11:02 SH TYLENOL #4 AdvReac SEVERE Uncoded 08/28/23 11:02 CONSTIPATION Physical Examination Gen: AOx3, NAD VSS stable at this time Integument: No obvious open lesions, sores, areas of erythema or soft tissue swelling to the cervical, thoracic or lumbar spine Palpation: No significant tenderness with palpation appreciated in the cervical or thoracic spine, she is tender with palpation in the lumbar region, more the paraspinal region ROM: Full range of motion in all major muscle groups of bilateral upper and lower extremities, no focal deficits Sensory Exam: Senory exam to light touch is intact C5-T1 Sen[place]ry exam to light touch is intact L2-S1, deficit to light touch appreciated in the L3-L4 distribution on the right lower extremity, also the L5-S1 of the bilateral lower extremities Motor: 5/5 strength appreciated the bilateral upper extremities with shoulder shruthi vation, shoulder abduction, elbow extension, elbow flexion, wrist extension, wrist flexion, engagement specialist 4+/5 strength appreciated the bilateral lower extremities with hip flexion, knee extension 5/5 strength appreciated in the bilateral lower extremities with knee flexion, plantarflexion, dorsiflexion, EHL, FHL Reflexes: 2/4 in all UE and LE Negative Sandhya's bilaterally Negative Babinski bilaterally Negative clonus bilaterally Results - Labs Labs: Abnormal Lab Results - Last 24 Hours (Table) 08/27/23 08/27/23 Range/Units 19:52 19:52 WBC 11.9 H (3.8-10.6) k/uL Neutrophils # 8.6 H (1.3-7.7) k/uL Carbon Dioxide 34 H (22-30) mmol/L Glucose 126 H (74-99) mg/dL H & H 08/27/23 Range/Units 19:52 Hgb 13.8 (11.4-16.0) gm/dL Hct 41.2 (34.0-46.0) % Result Diagrams: 08/27/23 19:52 08/27/23 19:52 - Diagnostic results CT Scan - lumbar: report reviewed, image reviewed (Images and reports reviewed of the CT scan of the lumbar spine. No acute fractures or dislocations appreciated. Mild degenerative disc changes noted at L3-L4, L4-L5, L5-S1, this to include mild bilateral neuroforaminal stenosis) Assessment and Plan Assessment: Chronic low back pain Lumbar degenerative disc disease Remote history of fibromyalgia Remote history of MS History of drug abuse Other medical comorbidities Plan: I was able to discuss the case, this to include both physical exam findings and imaging studies my attending Dr. Gil. No emergent orthopedic spine surgical intervention recommended at this time. Patient has a relatively complicated history with regards to her low back and current symptoms. We had a long discussion today regarding her overall clinical picture and the importance of following up with her current physicians. Pain management has been consulted, our neurology department has also been consulted which I feel would be greatly beneficial for further evaluating and treating her history of fibromyalgia and MS. Recommending to continue with conservative measures and resuming her normal med ications Weight-bear as tolerated, would recommend patient continue using the cane with ambulation DVT prophylaxis per primary medical service Other medical specialty recommendations appreciated Please contact our orthopedic service with any further questions regarding this patient Time with Patient: Less than 30
--- NOTE | 2023-08-28 15:50 | P.PAINPG ---
Objective - Vital Signs Vital signs: Vital Signs Temp 98.2 F 08/28/23 06:50 Pulse 56 L 08/28/23 06:50 Resp 17 08/28/23 06:50 BP 118/73 08/28/23 06:50 Pulse Ox 95 08/28/23 06:50 FiO2 Intake & Output 08/27/23 08/28/23 08/28/23 18:59 06:59 18:59 Intake Total 237 Balance 237 Weight 65.771 kg 65.771 kg Intake: Oral 237 Other: # Voids 3 - Labs CBC & Chem 7: 08/27/23 19:52 08/27/23 19:52 Labs: Abnormal Lab Results - Last 24 Hours (Table) 08/27/23 08/27/23 Range/Units 19:52 19:52 WBC 11.9 H (3.8-10.6) k/uL Neutrophils # 8.6 H (1.3-7.7) k/uL Carbon Dioxide 34 H (22-30) mmol/L Glucose 126 H (74-99) mg/dL PQRS Measure Charge Sheet Comment: HISTORY OF PRESENT ILLNESS: A 47 yr old inpatient female as a referral from Dr Lynne presents today w severe LBP secondary to DDD, spondylosis and facet arthropathy without myelopathy for evaluation. Pt states pain level is provoked at 8 /10 in intensity, insidious onset, constant, localized in the mid lumbar spine, predominantly axial, stabbing in character w occasional shooting pain towards the L & R of midline. Pain is provoked by bending. Pain is alleviated by physician guided home exercises 4 times weekly since Mar 2023, medications (Methadone 20mg TID, Toradol 15mg/mL q6h prn, Tyl 650mg q6h prn), manual massage, repositioning and rest . PMH: OA, Asthma/ Emphysema, Cervical CA, CTIA, Fibromyalgia, GERD, HTN, Seizure Disorder, Hypothyroidism/ Graves Disease, Cholecystitis, MDD/ Anxiety/ Bipolar/ Panic/ PTSD PSH: Appendectomy, Bladder Suspension Umbilical Hernia Repair, Thyroidectomy, Hysterectomy, Hemorrhoidectomy, L RCT Repair, Tubal Ligation, BL Hand Surgery, R Breast Biopsy, Colonoscopy/ EGD SH: Daily tobacco use, No ETOH use, Hx of Cannabis abuse FH: Mo- CA All: See list Meds: See list REVIEW OF ORGAN SYSTEMS: CONSTITUTIONAL: No fevers or chills. No recent weight loss. NEUROLOGICAL: + numbness and tingling along the distal extremities. No seizure disorders or headaches. MUSCULOSKELETAL: + pain PSYCHIATRIC: Denies current depression or suicidal thoughts. Physical Examinations : Constitutional : Cooperative , not in acute distress . Neurologic : Cranial nerve II to XII intact. No focal neurological deficits. Psychiatric : alert & oriented x 3. Matching mood & appropriate affect. Judgment & insight intact. Musculoskeletal : Cervical Spine Motor strength in the deltoid and biceps: Normal right side. Normal Left side Motor strength biceps and the wrist extensors: Normal right side . Normal left side Motor strength in the triceps muscle: Normal right side. Normal left side Deep tendon reflexes: Normal at the biceps. Normal at Brachioradialis. Normal at triceps Vertebral body tenderness to deep palpation over Cervical facet loading test: positive bilaterally Spurling test: positive bilaterally Neck distraction test: positive bilaterally Sandhya sign: positive bilaterally Lumbar spine Motor strength lower extremities ,thigh and legs 5/5 Right side , 5/5 Left side Deep tendon reflexes : Normal Knee Jerk. Normal Ankle Jerk Vertebral body tenderness over L3 Jordan Test positive BL L3-L4 Lumbar facet Loading Test: positive Right / positive Left Range of motion of the lumbar spine Flexion 30 degrees, extension 10 degrees Straight Leg Raise test: Left/ Right positive at degrees Micaela test: positive right / positive left. Severe tenderness over the Sacroiliac joint on the Right / Left sides Gaenslen test: positive bilaterally Seated flexion test: positive bilaterally. Sacral spine : Severe tenderness over the Sacroiliac joint: right side / left side Range of motion: Flexion of the lumbar spine <60 degrees Range of motion: Extension of the lumbar spine <20 degrees Gaenslen's Test positive Micaela test: positive right side / left side Thigh Thrust Test Sacral Thrust Test Imaging: CT non contrast of the lumbar spine from 08/27/23 reviewed Assessment/ Plan : Lumbar DDD Recommendation of SAULO L3-L4 #1. May need a series of injections for optimal pain relief. Risks, benefits of procedure discussed and pt verbalized understanding. Protocol for discontinuation/ continuation of medications kristina procedure discussed. Continue Methadone 20mg TID. All questions answered. I have spent greater than 30 minutes on patient care today. Dr Mercado was available by phone for the evaluation of this patient. The time was used to review the medical records including relevant urine studies and Prescription history (MAPs), review of the available imaging, evaluation and examination of the patient, coordination of care with the medical staff and if applicable referring physicians, as well as creation of the medical record PQRS Narrative: Smoking Status Current every day smoker Narcotic Agreement Date Signed 04/30/23 Blood Pressure [Left Arm] 118/73 Blood Pressure 131/77 Pain Intensity [Bilateral Hip] 7 Pain Intensity 7 Pain Scale Used Numeric (1 - 10) Scale Used Numeric (1 - 10) Hx Alcohol Use (MH) No Home Medications: Ambulatory Orders Acyclovir [Zovirax] 400 mg PO DAILY 06/30/13 Albuterol Inhaler [Ventolin Hfa Inhaler] 2 puff INHALATION RT-Q6H PRN 07/14/13 Multivitamins, Thera [Multivitamin (formulary)] 1 tab PO DAILY 12/01/14 lamoTRIgine [LaMICtal] 50 mg PO BID 05/31/15 levETIRAcetam [Keppra] 500 mg PO Q12H 05/31/15 Acetaminophen [Tylenol Extra Strength] 1,000 mg PO Q8H PRN 06/19/23 Amitriptyline HCl [Elavil] 100 mg PO HS 06/19/23 Aspirin EC [Ecotrin Low Dose] 81 mg PO DAILY 06/19/23 Budesonide/Formoterol Fumarate [Symbicort 160-4.5 Mcg Inhaler] 2 puff INHALATION RT-BID 06/19/23 Cetirizine HCl [Zyrtec] 10 mg PO DAILY 06/19/23 Ergocalciferol [Vitamin D2 (1250 Mcg = 40261 Iu)] 1,250 mcg PO WE 06/19/23 Levothyroxine Sodium [Euthyrox] 137 mcg PO DAILY 06/19/23 atenoloL [Tenormin] 25 mg PO DAILY 06/19/23 busPIRone HCl [Buspar] 10 mg PO TID 06/19/23 lisinopriL [Zestril] 10 mg PO DAILY 06/19/23 rOPINIRole HCL [Requip] 2 mg PO HS 06/19/23 Methadone HCl 20 mg PO TID 30 Days #90 tablet 08/18/23 Fluticasone Nasal [place] [Flonase Nasal [place]] 1 spray EA NOSTRIL DAILY 08/28/23 Ibuprofen [Motrin] 800 mg PO Q6H 08/28/23 Omeprazole [PriLOSEC] 40 mg PO DAILY 08/28/23 Orphenadrine [Norflex] 100 mg PO Q12H PRN 08/28/23 Controlled Substance Measures - Controlled Substance Measures Is patient prescribed a controlled substance at discharge?: No
[2023-08-28] MEDS ORDERED: NON FORMULARY DRUG (Acetaminophen [Tylenol Extra Strength] 500 MG Packet) PO PRN (16:26)
[2023-08-28] MEDS ORDERED: ALBUTEROL NEBULIZED 2.5 MG/3 ML INHALATION PRN (16:26)
[2023-08-28] MEDS ORDERED: IBUPROFEN 800 MG TAB PO SCH (16:30)
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
[2023-08-28] MEDS: levETIRAcetam 500 MG TAB PO SCH (19:58)
[2023-08-28] MEDS: AMITRIPTYLINE HCL 50 MG TAB PO SCH (19:58)
[2023-08-28] MEDS: lamoTRIgine 25 MG TAB PO SCH (19:59)
[2023-08-28] MEDS: busPIRone HCl 10 MG TAB PO SCH (19:59)
[2023-08-28] MEDS: SYMBICORT 160-4.5 MCG INHALER INHALATION SCH (20:03)
--- NOTE | 2023-08-29 00:52 | P.HPIM ---
History of Present Illness H&P Date: 08/28/23 Chief Complaint: Numbness of the feet and back pain Patient is a 47-year-old female with a past medical history of fibromyalgia, Graves' disease, history of cervical cancer status post hysterectomy, history of thyroidectomy, GERD, history of CVA/TIA with memory impairment, asthma, anxiety/depression/bipolar disorder and panic disorder and PTSD and currently everyday smoker and history of marijuana use. Patient presents to ER with complaints of bilateral hip pains and pain shooting into her lower back. She was also complaining of numbness in the feet. Pain was sharp in nature. Patient was also complaining of numbness over the anterior thigh. Came to ER for further evaluation. On admission CT of the lumbar spine showed no evidence of a lumbar spine fracture or traumatic malalignment. Mild lumbar spondylosis without evidence for acute spinal canal or neural foraminal stenosis. Laboratory data showed WBC 11.9 hemoglobin 13.8 and platelets 285 sodium 139 potassium 4.2 chloride 104 bicarb is 34 BUN 10 and creatinine 0.6 and blood sugar 126. TSH 1.48 Urinalysis is negative for infection. Patient does have a history of opiate addiction and is currently being treated with methadone. She was also using methamphetamines and cocaine in the past. Denies any IV drug use. Review of Systems Constitutional: Patient denies any fever or chills . No generalized weakness or weight loss. Abdomen: Patient denied nausea vomiting and diarrhea and abdominal pain. Cardiovascular: Patient denies any chest pain or short of breath no palp itations. Respiratory: patient denied any cough or sputum production. No shortness of breath Neurologic: Patient does complain of numbness of the anterior thigh. No headache or dizziness., Musculoskeletal: Patient denies any complaints of joint swelling or deformity. Lower back pain and Skin: Negative Psychiatric: Negative Endocrine: No heat or cold intolerance. No recent weight gain. Genitourinary: No dysuria or hematuria. All other 14 point ROS negative except the above Past Medical History Past Medical History: Asthma, Cancer, CVA/TIA, Fibromyalgia, GERD/Reflux, Hypertension, Memory Impairment, Seizure Disorder, Thyroid Disorder Additional Past Medical History / Comment(s): GALLSTONES,CERVICAL CANCER,EMPHYSEMA, chronic falls, GRAVE'S DISEASE, TIA 2011, MS, THYROID EYE DISEASE, DDD History of Any Multi-Drug Resistant Organisms: None Reported Past Surgical History: Appendectomy, Bladder Surgery, Hernia Repair, Hysterectomy, Orthopedic Surgery, Tubal Ligation Additional Past Surgical History / Comment(s): UMBILICAL HERNIA, HEMORRIODECTOMY, bladder SUSPENSION, Hand surgery bilateral , 2015 TUMOR REMOVED FROM NECK, THYROIDECTOMY, LT SHOULDER ROTATOR CUFF REPAIR-HAS PIN, CYST REMOVED FROM RT BREAST, COLONOSCOPY/EGD Past Anesthesia/Blood Transfusion Reactions: No Reported Reaction Past Psychological History: Anxiety, Bipolar, Depression, Panic Disorder, PTSD Smoking Status: Current every day smoker Past Alcohol Use History: None Reported Additional Past Alcohol Use History / Comment(s): STARTED SMOKING AGE 13-SMOKING 1 PPD Past Drug Use History: None Reported, Marijuana Additional Drug Use History / Comment(s): last used Marijuana approx. July of 2020 - Past Family History Mother Family Medical History: Cancer, Seizure Disorder Additional Family Medical History / Comment(s): Epilepsy Father Family Medical History: Cancer, Thyroid Disorder Additional Family Medical History / Comment(s): Skin cancer Brother(s) Family Medical History: Seizure Disorder Additional Family Medical History / Comment(s): Epilepsy Medications and Allergies Home Medications Medication Instructions Recorded Confirmed Type Acyclovir [Zovirax] 400 mg PO DAILY 06/30/13 08/28/23 History Albuterol Inhaler [Ventolin Hfa 2 puff INHALATION RT-Q6H PRN 07/14/13 08/28/23 History Inhaler] Multivitamins, Thera [Multivitamin 1 tab PO DAILY 12/01/14 08/28/23 History (formulary)] lamoTRIgine [LaMICtal] 50 mg PO BID 05/31/15 08/28/23 History levETIRAcetam [Keppra] 500 mg PO Q12H 05/31/15 08/28/23 History Acetaminophen [Tylenol Extra 1,000 mg PO Q8H PRN 06/19/23 08/28/23 History Strength] Amitriptyline HCl [Elavil] 100 mg PO HS 06/19/23 08/28/23 History Aspirin EC [Ecotrin Low Dose] 81 mg PO DAILY 06/19/23 08/28/23 History Budesonide/Formoterol Fumarate 2 puff INHALATION RT-BID 06/19/23 08/28/23 History [Symbicort 160-4.5 Mcg Inhaler] Cetirizine HCl [Zyrtec] 10 mg PO DAILY 06/19/23 08/28/23 History Ergocalciferol [Vitamin D2 (1250 1,250 mcg PO WE 06/19/23 08/28/23 History Mcg = 57248 Iu)] Levothyroxine Sodium [Euthyrox] 137 mcg PO DAILY 06/19/23 08/28/23 History atenoloL [Tenormin] 25 mg PO DAILY 06/19/23 08/28/23 History busPIRone HCl [Buspar] 10 mg PO TID 06/19/23 08/28/23 History lisinopriL [Zestril] 10 mg PO DAILY 06/19/23 08/28/23 History rOPINIRole HCL [Requip] 2 mg PO HS 06/19/23 08/28/23 History Methadone HCl 20 mg PO TID 30 Days #90 tablet 08/18/23 08/28/23 Rx Fluticasone Nasal [place] [Flonase 1 spray EA NOSTRIL DAILY 08/28/23 08/28/23 History Nasal [place]] Ibuprofen [Motrin] 800 mg PO Q6H 08/28/23 08/28/23 History Omeprazole [PriLOSEC] 40 mg PO DAILY 08/28/23 08/28/23 History Orphenadrine [Norflex] 100 mg PO Q12H PRN 08/28/23 08/28/23 History Allergies Allergy/AdvReac Type Severity Reaction Status Date / Time ampicillin Allergy Anaphylaxis Verified 08/28/23 11:02 cefaclor [From Ceclor] Allergy Rash/Hives Verified 08/28/23 11:02 Penicillins Allergy Anaphylaxis Verified 08/28/23 11:02 sulfamethoxazole Allergy Unknown Verified 08/28/23 11:02 [From Bactrim] trimethoprim [From Bactrim] Allergy Unknown Verified 08/28/23 11:02 codeine phosphate AdvReac SEVERE Verified 08/28/23 11:02 [From Tylenol-Codeine #3] CONSTIPATION duloxetine HCl AdvReac Confusion Verified 08/28/23 11:02 [From Cymbalta] pregabalin [From Lyrica] AdvReac Confusion Verified 08/28/23 11:02 PAPER TAPE Allergy Swelling,RA Uncoded 08/28/23 11:02 SH TYLENOL #4 AdvReac SEVERE Uncoded 08/28/23 11:02 CONSTIPATION Physical Exam Vitals: Vital Signs Temp Pulse Pulse Resp BP BP Pulse Ox 08/28/23 06:50 98.2 F 56 L 17 118/73 95 08/28/23 02:00 98.3 F 74 16 127/74 94 L 08/27/23 22:50 98.3 F 65 16 148/82 97 08/27/23 22:17 98.7 F 76 16 131/77 96 08/27/23 17:42 98.9 F 71 18 122/74 93 L Intake and Output 08/27/23 08/28/23 08/28/23 22:59 06:59 14:59 Intake Total 237 Balance 237 Intake: Oral 237 Other: # Voids 3 Weight 65.771 kg PHYSICAL EXAMINATION: Patient is lying in the bed comfortably, no acute distress, awake alert and oriented.. HEENT: Normocephalic. Neck is supple. Pupils reactive. Nostrils clear. Oral cavity is moist. Neck reveals no JVD, carotid bruits, or thyromegaly. CHEST EXAMINATION: Trachea is central. Symmetrical expansion. Lung cosme clear to auscultation and percussion. CARDIAC: Normal S1, S2 with no gallops. No murmurs ABDOMEN: Soft. Bowel sounds normal. No organomegaly. No abdominal bruits. Extremities: reveal no edema. No clubbing or cyanosis Neurologically awake, alert, oriented x3 with well-coordinated movements. No focal deficits noted Skin: No rash or skin lesions. Psychiatric: Coperative. Nonsuicidal anxious. Musculoskeletal: No joint swelling or deformity. Normal range of motion. Results CBC & Chem 7: 08/27/23 19:52 08/27/23 19:52 Labs: Abnormal Lab Results - Last 24 Hours (Table) 08/27/23 08/27/23 Range/Units 19:52 19:52 WBC 11.9 H (3.8-10.6) k/uL Neutrophils # 8.6 H (1.3-7.7) k/uL Carbon Dioxide 34 H (22-30) mmol/L Glucose 126 H (74-99) mg/dL Thrombosis Risk Factor Assmnt - DVT/VTE Prophylaxis DVT/VTE Prophylaxis: Pharmacologic Prophylaxis ordered - Choose All That Apply Each Factor Represents 1 point: Abnormal pulmonary function (COPD), Age 41-60 years, Obesity (BMI >25) Thrombosis Risk Factor Assessment Total Risk Factor Score: 3 Thrombosis Risk Factor Assessment Level: Moderate Risk Assessment and Plan Assessment: Bilateral hip pain and low back pain and numbness over the anterior thigh regions and also numbness of the feet. CT lumbar spine showed no evidence of lumbar spine fracture or traumatic management. Chronic low back pain Questionable history of MS. Patient reports history of MS but her previous MRI of the brain with and without contrast in 2013 and 2014 were normal. History of seizure disorder Opiate abuse currently on methadone History of cocaine use and methamphetamine use. Prior history of smoking Prior history of marijuana use DVT prophylaxis with heparin subcu Anxiety/depression/bipolar/PTSD Hypothyroidism Plan: Patient will be continued on pain management. Currently on ibuprofen and Toradol. She was also started on methylprednisolone 60 mg IV every 8 hourly. Continue with DuoNebs and Symbicort. TSH, B12, MMA B6, TSH, RPR and A1c levels were ordered. Neurology and orthopedic surgery is on board. EEG was ordered. Patient is being continued on amitriptyline and Requip and Norflex. Continue to follow closely. Time with Patient: Greater than 30
[2023-08-29] MEDS: LEVOTHYROXINE 137 MCG TAB PO SCH (05:30)
[2023-08-29] MEDS: PANTOPRAZOLE 40 MG TABLET PO SCH (05:30)
[2023-08-29] MEDS: LORATADINE 10 MG TAB PO SCH (08:16)
[2023-08-29] MEDS: ACYCLOVIR 200 MG CAP PO SCH (08:17)
[2023-08-29] MEDS: MULTIVITAMINS, THERA 1 EACH TAB PO SCH (08:17)
[2023-08-29] MEDS: lisinopriL 10 MG TAB PO SCH (08:18)
[2023-08-29] MEDS: HEPARIN SODIUM,PORCINE 5,000 UNIT/ML 1 ML VIAL SQ SCH (08:18)
[2023-08-29] MEDS: ASPIRIN 81 MG PO SCH (08:18)
[2023-08-29] MEDS: atenoloL 25 MG TAB PO SCH (08:18)
[2023-08-29] MEDS: FLUTICASONE NASAL 50MCG/SPRAY 16GM BTL EA NOSTRIL SCH (08:28)
[2023-08-29 10:54] LABS: Basophils # (A) 0.13 X 10*3/uL (0.00-0.10); Basophils % (A) 0.7 %; Eosinophils # (A) 0.63 X 10*3/uL (0.04-0.35); Eosinophils % (A) 3.6 %; HCT 42.6 % (37.2-46.3); HGB 14.1 g/dL (12.0-15.0); Lymphocytes # (A) 1.26 X 10*3/uL (0.90-5.00); Lymphocytes % (A) 7.3 %; MCH 32.3 pg (27.0-32.0); MCHC 33.1 g/dL (32.0-37.0); MCV 97.7 FL (80.0-97.0); Mean Platelet Volume 12.1 FL (9.5-12.2); Monocytes # (A) 0.84 X 10*3/uL (0.20-1.00); Monocytes % (A) 4.8 %; NRBC Per 100 WBC 0 X 10*3/uL (0.00-0.01); Neutrophils # (A) 14.07 X 10*3/uL (1.80-7.70); Neutrophils % (A) 81.1 %; Platelet Count 174 X 10*3/uL (140-440); RBC 4.36 X 10*6/uL (4.10-5.20); RBC Morphology Normal (Normal); RDW 12.4 % (11.5-14.5); WBC 17.37 X 10*3/uL (4.50-10.00)
[2023-08-29 12:01] LABS: Blood Urea Nitrogen 15.9 mg/dL (9.0-27.0); Calcium 9.5 mg/dL (8.7-10.3); Carbon Dioxide 22.4 mmol/L (21.6-31.8); Chloride 97 mmol/L (96-109); Glucose 144 mg/dL (70-110); Potassium 4.4 mmol/L (3.5-5.5); Sodium 139 mmol/L (135-145)
[2023-08-29 12:32] VITALS: BP 125/73; PULSE 63; RESP 16; TEMP 98.1
--- NOTE | 2023-08-29 13:01 | EEG ---
ELECTROENCEPHALOGRAM REPORT PREAMBLE: This is a 47-year-old female with history of seizure disorder. CURRENT MEDICATIONS: Keppra, Requip. EEG FINDINGS: This is a 21-channel digital EEG recorded with video component, utilizing 10/20 international system with referential and bipolar montages. Background consists of well-developed, moderately well-regulated, mixed frequencies of some 8 hertz alpha, intermixed with some theta activity seen in bihemispheric region. Background is posterior dominant and does not seem to be clearly reactive to eye opening or closing. The photic driving response was not clearly seen. The patient was drowsy during most of the study. Some stage 2 sleep was seen with presence of vertex waves and some sleep spindles. Some intermittent left temporal spikes were seen, but each time associated with twitching of the left eyebrow region, which appears somewhat habitual. No focal or generalized epileptiform discharges were seen. IMPRESSION: This is an abnormal EEG due to background slowing, suggestive of mild encephalopathy. No focal, lateralized, or epileptiform activity was seen. MMBILLYL / IJN: [id number] /
[2023-08-29] MEDS: CYANOCOBALAMIN 1,000 MCG/ML 1 ML VIAL IM ONE (16:17)
--- NOTE | 2023-08-29 16:21 | P.PN ---
Subjective Progress Note Date: 08/29/23 Patient was seen for a follow-up. Patient wants to go home. Objective - Vital Signs Vital signs: Vital Signs Temp 98.1 F 08/29/23 12:03 Pulse 63 08/29/23 12:03 Resp 16 08/29/23 12:03 BP 125/73 08/29/23 12:03 Pulse Ox 97 08/29/23 12:03 FiO2 Intake & Output 08/28/23 08/29/23 08/29/23 18:59 06:59 18:59 Intake Total 4516 1620 Balance 4516 1620 Intake: Oral 4516 1620 Other: # Voids 14 3 8 # Bowel Movements 10 4 - Exam Examination remains fairly normal. Unchanged. Mentation normal. - Labs CBC & Chem 7: 08/29/23 06:16 08/29/23 06:16 Labs: Abnormal Lab Results - Last 24 Hours (Table) 08/29/23 08/29/23 Range/Units 06:16 06:16 WBC 17.37 H (4.50-10.00) X 10*3/uL MCV 97.7 H (80.0-97.0) FL MCH 32.3 H (27.0-32.0) pg Immature Gran # 0.44 H (0.00-0.04) X 10*3/uL Neutrophils # 14.07 H (1.80-7.70) X 10*3/uL Eosinophils # 0.63 H (0.04-0.35) X 10*3/uL Basophils # 0.13 H (0.00-0.10) X 10*3/uL Anion Gap 19.60 H (4.00-12.00) mmol/L BUN/Creatinine Ratio 26.50 H (12.00-20.00) Ratio Glucose 144 H (70-110) mg/dL Assessment and Plan Assessment: * New onset numbness of bilateral anterior thigh region, unclear cause. Examination is relatively normal. Patient reports MS since 1999, but her MRI of the brain with and without contrast performed in 2013 and 2014 both were normal. * Borderline B12 level * Chronic low back pain * Lumbar degenerative disc disease * Questionable history of MS * Reported history of seizure disorder * History of drug abuse * Ex tobacco use Plan: * Patient's numbness of the anterior thigh region is of unclear cause. * B12 354, folate 12.30, MMA, B6, TSH 1.48, RPR nonreactive, A1c 5.6. Patient's B12 is borderline. We will give B12 1000 mcg IM x 1 dose and then B12 500 mcg orally daily. * Orthopedic spine and pain management are on board for chronic back pain. * Patient is complaining of some episodes of waking up from sleep, finding herself in the middle of the room, and falling. This appears more like parasomnia rather than ictal behavior. Patient is also on multiple psychoactive medications, which may be contributing to this abnormal sleep behavior. Most noteworthy is amitriptyline 100 mg at bedtime, Requip 2 mg at bedtime, Norflex. Patient states she has history of seizure disorder. * EEG was abnormal due to background slowing, suggestive of mild encephalopathy. No focal, lateralized or epileptiform activity was seen. * Continue Keppra 500 mg twice daily and Lamictal 50 mg twice daily. * Patient may benefit from sleep study/PSG, rule out sleep disordered breathing or other parasomnia. * Recommend follow-up with neurologist outpatient for management of seizure disorder. * Neurologically clear for discharge.
[2023-08-29] MEDS ORDERED: LORATADINE 10 MG TAB PO SCH (21:00)
[2023-08-29] MEDS ORDERED: lisinopriL 10 MG TAB PO SCH (21:00)
[2023-08-30] MEDS ORDERED: CYANOCOBALAMIN 500 MCG TAB PO SCH (09:00)
--- NOTE | 2023-09-01 11:41 | P.DS ---
Providers Date of admission: 08/27/23 21:38 Expected date of discharge: 08/29/23 Attending physician: Donte Lynne MD Consults: 08/27/23 21:37 Consult Physician Urgent Consulting Provider: Dashawn Gil Consult Reason/Comments: Back pain, paresthesias Do you want consulting provider notified?: Yes 08/27/23 21:38 Consult Physician Urgent Consulting Provider: Betty Light Consult Reason/Comments: Back pain, paresthesias, hx MS/DDD Do you want consulting provider notified?: Yes Primary care physician: [facility] Course: Final diagnosis Bilateral hip pain and low back pain and numbness over the anterior thigh regions and also numbness of the feet. CT lumbar spine showed no evidence of lumbar spine fracture or traumatic management. Chronic low back pain Questionable history of MS. Patient reports history of MS but her previous MRI of the brain with and without contrast in 2013 and 2014 were normal. History of seizure disorder Opiate abuse currently on methadone History of cocaine use and methamphetamine use. Prior history of smoking Prior history of marijuana use DVT prophylaxis with heparin subcu Anxiety/depression/bipolar/PTSD Hypothyroidism Discharge disposition Patient is being discharged in a stable condition with guarded prognosis to home. Patient will follow-up with Dr. Bakari Arguelles to establish in the outpatient setting upon discharge. Patient is to continue with current medications and outpatient follow-up with pain management as scheduled. Total time taken is greater than 35 minutes. Hospital course This is a 47-year-old female who was recently admitted with bilateral hip and lower back pain and numbness undergoing workup with neurology as well as orthopedics. Patient to follow-up with orthopedics outpatient as well as neurology and pain management. Patient reports she does not have a primary care provider at the moment and would like to follow-up with Dr. Marlon Arguelles. Patient reports to feeling improved and will be discharged home. Please refer to other consultation notes for further HPI. Patient to continue a prednisone taper and outpatient follow-up with orthopedics as needed. Currently no reports of chest pain, shortness of breath, or palpitations. Patient is afebrile. No reports of nausea or vomiting and patient is tolerating diet. Patient will be discharged home today. Guarded prognosis and high risk for readmissions given significant comorbidities and chronic pain Physical exam: Gen: This is a 47-year-old female who is awake, alert and oriented x 3, well-developed, elderly appearing HEENT: Head is atraumatic, normocephalic. Pupils equal, round. Sclerae is anicteric. NECK: Supple. No JVD. No lymphadenopathy. No thyromegaly. LUNGS: Clear to auscultation. No wheezes or rhonchi. No intercostal retractions. HEART: Regular rate and rhythm. No murmur. ABDOMEN: Soft. Bowel sounds are present. No masses. No tenderness. EXTREMITIES: No pedal edema. No calf tenderness. NEUROLOGICAL: Patient is awake, alert and oriented x3. Cranial nerves 2 through 12 are grossly intact. Please refer to medication reconciliation sheet for a list of medications. The impression and plan of care has been dictated by Bailey Aragon, Nurse Practitioner as directed. Dr. Brenda MD I have performed a history and examination and MDM of this patient, discussed the same with the dictator, and agree with the dictator's assessment and plan as written ,documented as a scribe. Based on total visit time, I have performed more than 50% of the visit. Patient Condition at Discharge: Good Plan - Discharge Summary Discharge Rx Participant: Yes New Discharge Prescriptions: New predniSONE 10 mg PO DIRECTED #30 tab Continue Acyclovir [Zovirax] 400 mg PO DAILY Albuterol Inhaler [Ventolin Hfa Inhaler] 2 puff INHALATION RT-Q6H PRN PRN Reason: Shortness Of Breath Or Wheezing Multivitamins, Thera [Multivitamin (formulary)] 1 tab PO DAILY lamoTRIgine [LaMICtal] 50 mg PO BID levETIRAcetam [Keppra] 500 mg PO Q12H Cetirizine HCl [Zyrtec] 10 mg PO DAILY lisinopriL [Zestril] 10 mg PO DAILY busPIRone HCl [Buspar] 10 mg PO TID Levothyroxine Sodium [Euthyrox] 137 mcg PO DAILY Methadone HCl 20 mg PO TID 30 Days #90 tablet Orphenadrine [Norflex] 100 mg PO Q12H PRN PRN Reason: Muscle Spasm Ibuprofen [Motrin] 800 mg PO Q6H Omeprazole [PriLOSEC] 40 mg PO DAILY Ergocalciferol [Vitamin D2 (1250 Mcg = 51898 Iu)] 1,250 mcg PO WE Amitriptyline HCl [Elavil] 100 mg PO HS atenoloL [Tenormin] 25 mg PO DAILY Aspirin EC [Ecotrin Low Dose] 81 mg PO DAILY rOPINIRole HCL [Requip] 2 mg PO HS Budesonide/Formoterol Fumarate [Symbicort 160-4.5 Mcg Inhaler] 2 puff INHALATION RT-BID Acetaminophen [Tylenol Extra Strength] 1,000 mg PO Q8H PRN PRN Reason: Pain Fluticasone Nasal [place] [Flonase Nasal [place]] 1 spray EA NOSTRIL DAILY Discharge Medication List Acyclovir [Zovirax] 400 mg PO DAILY 06/30/13 [History] Albuterol Inhaler [Ventolin Hfa Inhaler] 2 puff INHALATION RT-Q6H PRN 07/14/13 [History] Multivitamins, Thera [Multivitamin (formulary)] 1 tab PO DAILY 12/01/14 [History] lamoTRIgine [LaMICtal] 50 mg PO BID 05/31/15 [History] levETIRAcetam [Keppra] 500 mg PO Q12H 05/31/15 [History] Acetaminophen [Tylenol Extra Strength] 1,000 mg PO Q8H PRN 06/19/23 [History] Amitriptyline HCl [Elavil] 100 mg PO HS 06/19/23 [History] Aspirin EC [Ecotrin Low Dose] 81 mg PO DAILY 06/19/23 [History] Budesonide/Formoterol Fumarate [Symbicort 160-4.5 Mcg Inhaler] 2 puff INHALATION RT-BID 06/19/23 [History] Cetirizine HCl [Zyrtec] 10 mg PO DAILY 06/19/23 [History] Ergocalciferol [Vitamin D2 (1250 Mcg = 22786 Iu)] 1,250 mcg PO WE 06/19/23 [History] Levothyroxine Sodium [Euthyrox] 137 mcg PO DAILY 06/19/23 [History] atenoloL [Tenormin] 25 mg PO DAILY 06/19/23 [History] busPIRone HCl [Buspar] 10 mg PO TID 06/19/23 [History] lisinopriL [Zestril] 10 mg PO DAILY 06/19/23 [History] rOPINIRole HCL [Requip] 2 mg PO HS 06/19/23 [History] Methadone HCl 20 mg PO TID 30 Days #90 tablet 08/18/23 [Rx] Fluticasone Nasal [place] [Flonase Nasal [place]] 1 spray EA NOSTRIL DAILY 08/28/23 [History] Ibuprofen [Motrin] 800 mg PO Q6H 08/28/23 [History] Omeprazole [PriLOSEC] 40 mg PO DAILY 08/28/23 [History] Orphenadrine [Norflex] 100 mg PO Q12H PRN 08/28/23 [History] predniSONE 10 mg PO DIRECTED #30 tab 08/29/23 [Rx] Follow up Appointment(s)/Referral(s): Marlon Arguelles MD [STAFF PHYSICIAN] - 1 Week (Please make follow up appointment. Please provide insurance information to office. ) Juan Pitts MD [Medical Doctor] - 1 Week (Please make follow-up appointment. Office closed at time of call.) Dashawn Gil DO [Doctor of Osteopathic Medicine] - 1 Week (Please call insurance provider to find a doctor that can take your insurance. Thank you. ) April Chun [Primary Care Provider] - 1-2 days (Please call to make follow up appointment. Office closed at time of call. ) Patient Instructions/Handouts: Prednisone (By mouth) Activity/Diet/Wound Care/Special Instructions: Activity limited until follow-up Follow-up with primary care provider on discharge to establish Follow-up with pain management outpatient Follow-up to establish with neurology Continue taking prednisone taper Follow-up with orthopedics outpatient as needed Discharge Disposition: HOME SELF-CARE
[2023-09-03] MEDS ORDERED: ERGOCALCIFEROL 1,250 MCG (50,000 IU) CAPSULE PO SCH (09:00)
== END 2023-08-29 16:35 | disposition home or self-care (01) | DRG 58 ==
LOC: EC 17:35 → OBSVTOIN 21:38 → 5NMEDONC 21:38
PROVIDERS: ADMIT Internal Medicine; ATTEND Internal Medicine
PROC: 4A10X4Z Monitoring of Central Nervous Electrical Activity, External Approach (ICD-10-PCS; principal; 2023-08-29)
DX: R20.0 Anesthesia of skin (principal); E03.9 Hypothyroidism, unspecified; Z79.890 Hormone replacement therapy; F31.9 Bipolar disorder, unspecified; F43.10 Post-traumatic stress disorder, unspecified; G25.81 Restless legs syndrome; G40.909 Epilepsy, unspecified, not intractable, without status epilepticus; G89.29 Other chronic pain; I10 Essential (primary) hypertension; J43.9 Emphysema, unspecified; M79.7 Fibromyalgia; M51.36 Other intervertebral disc degeneration, lumbar region; M47.816 Spondylosis without myelopathy or radiculopathy, lumbar region; Z79.51 Long term (current) use of inhaled steroids; Z79.82 Long term (current) use of aspirin; M54.50 Low back pain, unspecified; M25.552 Pain in left hip; M25.551 Pain in right hip; F41.0 Panic disorder [episodic paroxysmal anxiety]; Z79.899 Other long term (current) drug therapy; J45.909 Unspecified asthma, uncomplicated; F17.210 Nicotine dependence, cigarettes, uncomplicated; Z80.8 Family history of malignant neoplasm of other organs or systems; M19.90 Unspecified osteoarthritis, unspecified site; Z86.73 Personal history of transient ischemic attack (TIA), and cerebral infarction without residual deficits; Z85.41 Personal history of malignant neoplasm of cervix uteri; Z90.710 Acquired absence of both cervix and uterus; Z87.19 Personal history of other diseases of the digestive system; R29.6 Repeated falls; Z91.81 History of falling; Z88.1 Allergy status to other antibiotic agents; Z88.0 Allergy status to penicillin; Z88.8 Allergy status to other drugs, medicaments and biological substances; Z86.59 Personal history of other mental and behavioral disorders; Z88.2 Allergy status to sulfonamides; Z88.5 Allergy status to narcotic agent; Z98.51 Tubal ligation status
CPT/HCPCS: 36415; 72131; 80048; 80053; 80177; 81003; 82607; 82746; 83036; 83921; 84207; 84443; 85025; 86780; 94640; 95816; 96374; 96375; 99285

== ENCOUNTER → 2023-10-15 | Outpatient (CLI) | payer OTHER ==
[2023-10-15 11:16] VITALS: BP 106/69; PULSE 89; RESP 16; TEMP 98.3
--- NOTE | 2023-10-15 14:05 | P.PAINPG ---
PQRS Measure Charge Sheet Comment: HISTORY OF PRESENT ILLNESS: A 48 yr old female presents today w severe and chronic LBP > 12 yrs secondary to DDD, spondylosis and facet arthropathy without myelopathy for medication refills and evaluation. Pt states pain level is provoked at 8 /10 in intensity, constant, localized in the mid to lower lumbar spine, predominantly axial, throbbing in character w shooting pain towards the BL hips L > R. Pain is provoked by weight bearing activity. Pain is alleviated by PT x 6 wks total (Dec - Feb), physician guided exercises daily since Feb 2023, medications, repositioning and rest. Interventional procedures include BL TPIs L2-S1 x1 Medications include Methadone 50mg QAM from [facility], Hx of Cannabis use REVIEW OF ORGAN SYSTEMS: CONSTITUTIONAL: No fevers or chills. No recent weight loss. NEUROLOGICAL: + numbness and tingling along the distal extremities. No seizure disorders or headaches. MUSCULOSKELETAL: + pain PSYCHIATRIC: Denies current depression or suicidal thoughts. Physical Examinations : Constitutional : Cooperative , not in acute distress . Neurologic : Cranial nerve II to XII intact. No focal neurological deficits. Psychiatric : alert & oriented x 3. Matching mood & appropriate affect. Judgment & insight intact. Musculoskeletal : Cervical Spine Motor strength in the deltoid and gregoria ps: Normal right side. Normal Left side Motor strength biceps and the wrist extensors: Normal right side . Normal left side Motor strength in the triceps muscle: Normal right side. Normal left side Deep tendon reflexes: Normal at the biceps. Normal at Brachioradialis. Normal at triceps Vertebral body tenderness to deep palpation over Cervical facet loading test: positive bilaterally Spurling test: positive bilaterally Neck distraction test: positive bilaterally Sandhya sign: positive bilaterally Lumbar spine Motor strength lower extremities ,thigh and legs 5/5 Right side , 5/5 Left side Deep tendon reflexes : Normal Knee Jerk. Normal Ankle Jerk Vertebral body tenderness over Jordan Test positive Taut bands w twitch response over BL L2-S1 Lumbar facet Loading Test: positive Right / positive Left Range of motion of the lumbar spine Flexion 30 degrees, extension 10 degrees Straight Leg Raise test: Left/ Right positive at degree Micaela test: positive right / positive left. Severe tenderness over the Sacroiliac joint on the Right / Left sides Gaenslen test: positive bilaterally Seated flexion test: positive bilaterally. Sacral spine : Severe tenderness over the Sacroiliac joint: right side / left side Range of motion: Flexion of the lumbar spine <60 degrees Range of motion: Extension of the lumbar spine <20 degrees Gaenslen's Test positive Micaela test: positive right side / left side Thigh Thrust Test Sacral Thrust Test Imaging: None on file Assessment/ Plan : Lumbar DDD Recommendation of medication management. Methadone tab 10mg TID (2 tabs PO TID) #180 w 1 RF. Opiate/ Narcotic agreement signed 04/30/23. UDS collected 10/15/23. Use, side effects, adverse reactions, safe storage discussed. All questions a nswered. I have spent greater than 30 minutes on patient care today. Dr Mercado was available by phone for the evaluation of this patient. The time was used to review the medical records including relevant urine studies and Prescription history (MAPs), review of the available imaging, evaluation and examination of the patient, coordination of care with the medical staff and if applicable referring physicians, as well as creation of the medical record PQRS Narrative: Smoking Status Current every day smoker Narcotic Agreement Date Signed 04/30/23 Hx Alcohol Use (MH) No Home Medications: Ambulatory Orders Acyclovir [Zovirax] 400 mg PO DAILY 06/30/13 Albuterol Inhaler [Ventolin Hfa Inhaler] 2 puff INHALATION RT-Q6H PRN 07/14/13 Multivitamins, Thera [Multivitamin (formulary)] 1 tab PO DAILY 12/01/14 lamoTRIgine [LaMICtal] 50 mg PO BID 05/31/15 levETIRAcetam [Keppra] 500 mg PO Q12H 05/31/15 Acetaminophen [Tylenol Extra Strength] 1,000 mg PO Q8H PRN 06/19/23 Amitriptyline HCl [Elavil] 100 mg PO HS 06/19/23 Aspirin EC [Ecotrin Low Dose] 81 mg PO DAILY 06/19/23 Budesonide/Formoterol Fumarate [Symbicort 160-4.5 Mcg Inhaler] 2 puff INHALATION RT-BID 06/19/23 Cetirizine HCl [Zyrtec] 10 mg PO DAILY 06/19/23 Ergocalciferol [Vitamin D2 (1250 Mcg = 07312 Iu)] 1,250 mcg PO WE 06/19/23 Levothyroxine Sodium [Euthyrox] 137 mcg PO DAILY 06/19/23 atenoloL [Tenormin] 25 mg PO DAILY 06/19/23 busPIRone HCl [Buspar] 10 mg PO TID 06/19/23 lisinopriL [Zestril] 10 mg PO DAILY 06/19/23 rOPINIRole HCL [Requip] 2 mg PO HS 06/19/23 Fluticasone Nasal [place] [Flonase Nasal [place]] 1 spray EA NOSTRIL DAILY 08/28/23 Ibuprofen [Motrin] 800 mg PO Q6H 08/28/23 Omeprazole [PriLOSEC] 40 mg PO DAILY 08/28/23 Orphenadrine [Norflex] 100 mg PO Q12H PRN 08/28/23 predniSONE 10 mg PO DIRECTED #30 tab 08/29/23 Methadone HCl 10 mg PO TID 30 Days #180 tab 10/15/23 Methadone HCl 10 mg PO TID 30 Days #180 tablet 10/15/23 Controlled Substance Measures - Controlled Substance Measures Is patient prescribed a controlled substance at discharge?: Yes When asked, does pt state using other controlled substances?: No If prescribed controlled substance>3 days was MAPS reviewed?: Yes
== END ==
LOC: PNWHC3 10:24
PROVIDERS: ATTEND Specialist
DX: M54.16 Radiculopathy, lumbar region
CPT/HCPCS: 80307; 99211

== ENCOUNTER 2024-01-12 23:11 | Emergency (ER) | payer OTHER ==
[2024-01-12 23:16] VITALS: RESP 18; TEMP 98.4
--- NOTE | 2024-01-12 23:55 | ED ---
General Adult HPI - General Chief complaint: Recheck/Abnormal Lab/Rx Stated complaint: Pain Time Seen by Provider: 01/12/24 23:17 Source: patient Mode of arrival: ambulatory Limitations: no limitations - History of Present Illness Initial comments: Patient is a pleasant 48-year-old female presenting today for methadone withdrawal. Patient states that she has been taking methadone since discharge in the hospital in October. She has been seeing a pain specialist however due to issues with the pharmacy, she ran out of her methadone this past Friday and has not been able to get it refilled. She called her pain specialist and they cannot get her in until February. Patient states that she was taking 20 mg 3 times daily however due to issues with her pharmacy had to self taper down on her dose over the course of the last month and last dose was half a pill of methadone Friday. Since then she has felt malaise, myalgias, nausea, diarrhea. Denies illicit drug or alcohol use. Denies chest pain, difficulty in breathing, fevers, chills, abdominal pain, numbness, weakness, vomiting, hematochezia or melena. Patient is afraid she will use again if these symptoms continue. - Related Data Home Medications Medication Instructions Recorded Confirmed Acyclovir [Zovirax] 400 mg PO DAILY 06/30/13 08/28/23 Albuterol Inhaler [Ventolin Hfa 2 puff INHALATION RT-Q6H PRN 07/14/13 08/28/23 Inhaler] Multivitamins, Thera [Multivitamin 1 tab PO DAILY 12/01/14 08/28/23 (formulary)] lamoTRIgine [LaMICtal] 50 mg PO BID 05/31/15 08/28/23 levETIRAcetam [Keppra] 500 mg PO Q12H 05/31/15 08/28/23 Acetaminophen [Tylenol Extra 1,000 mg PO Q8H PRN 06/19/23 08/28/23 Strength] Amitriptyline HCl [Elavil] 100 mg PO HS 06/19/23 08/28/23 Aspirin EC [Ecotrin Low Dose] 81 mg PO DAILY 06/19/23 08/28/23 Budesonide/Formoterol Fumarate 2 puff INHALATION RT-BID 06/19/23 08/28/23 [Symbicort 160-4.5 Mcg Inhaler] Cetirizine HCl [Zyrtec] 10 mg PO DAILY 06/19/23 08/28/23 Ergocalciferol [Vitamin D2 (1250 1,250 mcg PO WE 06/19/23 08/28/23 Mcg = 53083 Iu)] Levothyroxine Sodium [Euthyrox] 137 mcg PO DAILY 06/19/23 08/28/23 atenoloL [Tenormin] 25 mg PO DAILY 06/19/23 08/28/23 busPIRone HCl [Buspar] 10 mg PO TID 06/19/23 08/28/23 lisinopriL [Zestril] 10 mg PO DAILY 06/19/23 08/28/23 rOPINIRole HCL [Requip] 2 mg PO HS 06/19/23 08/28/23 Fluticasone Nasal [place] [Flonase 1 spray EA NOSTRIL DAILY 08/28/23 08/28/23 Nasal [place]] Ibuprofen [Motrin] 800 mg PO Q6H 08/28/23 08/28/23 Omeprazole [PriLOSEC] 40 mg PO DAILY 08/28/23 08/28/23 Orphenadrine [Norflex] 100 mg PO Q12H PRN 08/28/23 08/28/23 Previous Rx's Medication Instructions Recorded predniSONE 10 mg PO DIRECTED #30 tab 08/29/23 Methadone HCl 10 mg PO TID 30 Days #180 tab 10/15/23 Methadone HCl 10 mg PO TID 30 Days #180 tablet 10/15/23 Allergies Allergy/AdvReac Type Severity Reaction Status Date / Time ampicillin Allergy Anaphylaxis Verified 01/12/24 23:16 cefaclor [From Ceclor] Allergy Rash/Hives Verified 01/12/24 23:16 Penicillins Allergy Anaphylaxis Verified 01/12/24 23:16 sulfamethoxazole Allergy Unknown Verified 01/12/24 23:16 [From Bactrim] trimethoprim [From Bactrim] Allergy Unknown Verified 01/12/24 23:16 codeine phosphate AdvReac SEVERE Verified 01/12/24 23:16 [From Tylenol-Codeine #3] CONSTIPATION duloxetine HCl AdvReac Confusion Verified 01/12/24 23:16 [From Cymbalta] pregabalin [From Lyrica] AdvReac Confusion Verified 01/12/24 23:16 PAPER TAPE Allergy Swelling,RA Uncoded 01/12/24 23:16 SH TYLENOL #4 AdvReac SEVERE Uncoded 01/12/24 23:16 CONSTIPATION Review of Systems ROS Statement: Those systems with pertinent positive or pertinent negative responses have been documented in the HPI. ROS Other: All systems not noted in ROS Statement are negative. Past Medical History Past Medical History: Asthma, Cancer, CVA/TIA, Fibromyalgia, GERD/Reflux, Hypertension, Memory Impairment, Seizure Disorder, Thyroid Disorder Additional Past Medical History / Comment(s): GALLSTONES,CERVICAL CANCER,EMPHYSEMA, chronic falls, GRAVE'S DISEASE, TIA 2011, MS, THYROID EYE DISEASE, DDD History of Any Multi-Drug Resistant Organisms: None Reported Past Surgical History: Appendectomy, Bladder Surgery, Hernia Repair, Hysterectomy, Orthopedic Surgery, Tubal Ligation Additional Past Surgical History / Comment(s): UMBILICAL HERNIA, HEMORRIODECTOMY, bladder SUSPENSION, Hand surgery bilateral , 2014 TUMOR REMOVED FROM NECK, THYROIDECTOMY, LT SHOULDER ROTATOR CUFF REPAIR-HAS PIN, CYST REMOVED FROM RT BREAST, COLONOSCOPY/EGD Past Anesthesia/Blood Transfusion Reactions: No Reported Reaction Past Psychological History: Anxiety, Bipolar, Depression, Panic Disorder, PTSD Smoking Status: Current every day smoker Past Alcohol Use History: None Reported Past Drug Use History: Methamphetamine, Opiates - Past Family History Mother Family Medical History: Cancer, Seizure Disorder Additional Family Medical History / Comment(s): Epilepsy Father Family Medical History: Cancer, Thyroid Disorder Additional Family Medical History / Comment(s): Skin cancer Brother(s) Family Medical History: Seizure Disorder Additional Family Medical History / Comment(s): Epilepsy General Exam - General Exam Comments Initial Comments: PE: CONSTITUTIONAL: No apparent distress, well appearing SKIN: Warm, dry, no jaundice, hives or petechiae EYES: Pupils are equally round, extraocular movements intact without nystagmus, clear conjunctiva, non-icteric sclera HENT: Normocephalic, atraumatic, moist mucus membranes, oropharynx clear without exudates NECK: , Full range of motion, normal appearance PULMONARY: Clear to auscultation without wheezes, rhonchi, or rales, normal excursion, no accessory muscle use and no stridor CARDIOVASCULAR: Regular rate, rhythm, normal S1 and S2. No appreciated murmurs, rubs or gallops. Strong radial pulses with intact distal perfusion. No lower extremity edema GASTROINTESTINAL: Soft, hyperactive bowel sounds throughout, non-tender, non- distended, no palpable masses, no rebound or guarding. No hepatosplenomegaly MUSCULOSKELETAL: Extremities have no gross deformity, no edema, redness, or swelling. No calf swelling NEUROLOGIC:_a/o x 3, GCS 15, normal mentation and speech. Moves all extremities x 4 without motor or sensory deficit PSYCHIATRIC:_normal mood and affect, thought process is clear and linear Limitations: no limitations Course Vital Signs 01/12/24 01/13/24 23:14 00:13 Temperature 98.4 F Pulse Rate 98 93 Respiratory 18 18 Rate Blood Pressure 139/87 115/74 O2 Sat by Pulse 98 98 Oximetry EKG Findings - EKG Comments: EKG Findings:: Sinus rhythm, rate 85 bpm, TN interval 186 ms, QRS duration 104 ms, QT/QTc 3-70 2/415 ms, normal axis, no ST elevations or depressions, no arrhythmia, no Brugada pattern or delta wave Medical Decision Making - Medical Decision Making Was pt. sent in by a medical professional or institution (, PA, PROGRAM DEVELOPER, urgent care, hospital, or prison...) When possible be specific @ -No Did you speak to anyone other than the patient for history (EMS, parent, family, police, friend...)? What history was obtained from this source @ -No Did you review nursing and triage notes (agree or disagree)? Why? @ -I reviewed and agree with nursing and triage notes Were old charts reviewed (outside hosp., previous admission, EMS record, old EKG, old radiological studies, urgent care reports/EKG's, prison records)? Report findings @Medical records reviewed, patient was discharged from this facility at the end of October with 2 different scripts, it appears each for 30 days for methadone Differential Diagnosis (chest pain, altered mental status, abdominal pain women, abdominal pain men, vaginal bleeding, weakness, fever, dyspnea, syncope, headache, dizziness, GI bleed, back pain, seizure, CVA, palpatations, mental health, musculoskeletal)? @Differential diagnosis remains broad however top considerations include opioid withdrawal, polysubstance abuse, malingering, viral infection, this is not an all-inclusive list EKG interpreted by me (3pts min.). @ -As above X-rays interpreted by me (1pt min.). @ -None done CT interpreted by me (1pt min.). @ -None done U/S interpreted by me (1pt. min.). @ -None done What testing was considered but not performed or refused? (CT, X-rays, U/S, labs)? Why? @ -None What meds were considered but not given or refused? Why? @ -None Did you discuss the management of the patient with other professionals (professionals i.e. , PA, PROGRAM DEVELOPER, lab, RT, psych nurse, social work associate, aircraft general repair mechanic, teacher, licensed loan officer assistant, case finisher)? Give summary @ -No Was smoking cessation discussed for >3mins.? @ -No Was critical care preformed (if so, how long)? @ -No Were there social determinants of health that impacted care today? How? (Homelessness, low income, unemployed, alcoholism, drug addiction, transportation, low edu. Level, literacy, decrease access to med. care, residential, rehab)? @ -Drug addiction Was there de-escalation of care discussed even if they declined (Discuss DNR or withdrawal of care, Hospice)? @ -No What co-morbidities impacted this encounter? (DM, HTN, Smoking, COPD, CAD, Cancer, CVA, ARF, Chemo, Hep., AIDS, mental health diagnosis, sleep apnea, morbid obesity)? @Substance abuse, Was patient admitted / discharged? Hospital course, mention meds given and route, prescriptions, significant lab abnormalities, going to OR and other pert inent info. @Discharged-this is a pleasant 48-year-old female the past medical history of opioid dependence presenting today for concerns for methadone withdrawal. Patient describes malaise, nausea, diarrhea, symptoms consistent with methadone withdrawal. Exam significant for hyperactive bowel sounds, also consistent with methadone withdrawal. EKG does not show any QT prolongation. In order to prevent further withdrawal symptoms and relapse, I discussed with patient administering 10 mg methadone, the dose that she had most recently taken approximately 48 to 72 hours prior to arrival. I discussed with her that it is of crucial importance to follow-up with her pain specialist or primary care provider regarding further prescription or refills for her methadone. Pt also requested zofran which will be administered. In my medical judgment there is currently no evidence of an immediate life- threatening or surgical condition. Discharge is therefore indicated at this time. Discharge treatment instructions, follow up instructions, and appropriate emergency department return precautions were discussed with the patient and/or medical decision maker. Patient and/or medical decision maker expressed understanding of and agreed with the treatment plan, follow up instructions, and emergency department return precaution. All patient's and/or medical decision maker's questions were answered. The patient was advised that a small risk still exists that a serious condition could develop and was therefore instructed to return to the ED for any changes in symptoms, persistent symptoms, inability to obtain proper follow-up or for any further concerns. Patient received verbal and written instructions for this condition. Undiagnosed new problem with uncertain prognosis? @ -No Drug Therapy requiring intensive monitoring for toxicity (Heparin, Nitro, Insulin, Cardizem)? @ -No Were any procedures done? @ -No Diagnosis/symptom? @Opioid withdrawal Acute, or Chronic, or Acute on Chronic? @ -Acute Uncomplicated (without systemic symptoms) or Complicated (systemic symptoms)? @Complicated Side effects of treatment? @ -No Exacerbation, Progression, or Severe Exacerbation? @ -No Poses a threat to life or bodily function? How? (Chest pain, [place], [place], pneumonia, PE, COPD, DKA, ARF, appy, cholecystitis, CVA, Diverticulitis, Homicidal, Suicidal, threat to staff... and all critical care pts) @ No, withdrawal symptoms in this patient currently mild Disposition Clinical Impression: Opioid withdrawal Disposition: HOME SELF-CARE Condition: Stable Instructions (If sedation given, give patient instructions): Opioid Withdrawal (ED) Additional Instructions: Every disease is a spectrum and a small chance still exists that a serious condition could develop, for this reason, please monitor yourself closely for new, changing or worsening symptoms, symptoms atypical of your usual opioid withdrawal symptoms, fevers, uncontrollable nausea and vomiting, chest pain, difficulty in breathing, new or severe abdominal pain, symptoms that persist beyond/improvement [48 hours], inability to tolerate/keep down fluids or your medications, inability to follow up with outpatient providers as instructed and should you experience these symptoms or should you have any further concerns for your wellbeing please return to the ED or call 911 immediately. It is very importantly follow-up with your primary care provider and your pain specialist in the next 48 hours for further discussion on termite helper methadone therapy as indicated. PLEASE call your primary care physician as soon as possible to arrange / discuss plan for followup appointment. Appointment in the next 1-3 days is strongly encouraged if possible. PLEASE let us know here before you leave if there is anything further we can do to be of any assistance. Take care and feel Better! Is patient prescribed a controlled substance at d/c from ED?: Yes Referrals: Peter Urena [Primary Care Provider] - 1-2 days
[2024-01-13] MEDS: ONDANSETRON ODT 4 MG TAB PO STA (00:10)
[2024-01-13] MEDS: METHADONE 10 MG TAB PO STA (00:10)
[2024-01-13] MEDS: ONDANSETRON 4 MG ODT STARTER PACK 2 TAB BTL PO STA (00:10)
[2024-01-13 00:14] VITALS: BP 115/74; PULSE 93
== END 2024-01-13 00:15 | disposition home or self-care (01) ==
LOC: EC 23:11
DX: F11.23 Opioid dependence with withdrawal (principal); F17.200 Nicotine dependence, unspecified, uncomplicated; Z88.0 Allergy status to penicillin; Z88.5 Allergy status to narcotic agent; Z88.2 Allergy status to sulfonamides; Z88.8 Allergy status to other drugs, medicaments and biological substances; Z88.1 Allergy status to other antibiotic agents; Z88.6 Allergy status to analgesic agent
CPT/HCPCS: 93005; 99284; S0109; S0119

== ENCOUNTER 2024-01-22 13:39 | Emergency (ER) | payer OTHER ==
[2024-01-22 13:50] VITALS: TEMP 98.6
--- NOTE | 2024-01-22 14:57 | ED ---
General Adult HPI - General Chief complaint: Recheck/Abnormal Lab/Rx Stated complaint: full body pain Time Seen by Provider: 01/22/24 14:18 Source: patient, RN notes reviewed Mode of arrival: ambulatory Limitations: no limitations - History of Present Illness Initial comments: 48-year-old female with history of chronic pain presents to the emergency dep artment for "pain all over."Patient reports that 3 weeks ago she ran out of her methadone and has been and unable to get it since. She reports that since then she has been experiencing pain all over her body. She states that this is typical of her chronic pain when she is off of her medication. She also admits to nausea without vomiting. Denies recent fever, chills. - Related Data Home Medications Medication Instructions Recorded Confirmed Acyclovir [Zovirax] 400 mg PO DAILY 06/30/13 08/28/23 Albuterol Inhaler [Ventolin Hfa 2 puff INHALATION RT-Q6H PRN 07/14/13 08/28/23 Inhaler] Multivitamins, Thera [Multivitamin 1 tab PO DAILY 12/01/14 08/28/23 (formulary)] lamoTRIgine [LaMICtal] 50 mg PO BID 05/31/15 08/28/23 levETIRAcetam [Keppra] 500 mg PO Q12H 05/31/15 08/28/23 Acetaminophen [Tylenol Extra 1,000 mg PO Q8H PRN 06/19/23 08/28/23 Strength] Amitriptyline HCl [Elavil] 100 mg PO HS 06/19/23 08/28/23 Aspirin EC [Ecotrin Low Dose] 81 mg PO DAILY 06/19/23 08/28/23 Budesonide/Formoterol Fumarate 2 puff INHALATION RT-BID 06/19/23 08/28/23 [Symbicort 160-4.5 Mcg Inhaler] Cetirizine HCl [Zyrtec] 10 mg PO DAILY 06/19/23 08/28/23 Ergocalciferol [Vitamin D2 (1250 1,250 mcg PO WE 06/19/23 08/28/23 Mcg = 59514 Iu)] Levothyroxine Sodium [Euthyrox] 137 mcg PO DAILY 06/19/23 08/28/23 atenoloL [Tenormin] 25 mg PO DAILY 06/19/23 08/28/23 busPIRone HCl [Buspar] 10 mg PO TID 06/19/23 08/28/23 lisinopriL [Zestril] 10 mg PO DAILY 06/19/23 08/28/23 rOPINIRole HCL [Requip] 2 mg PO HS 06/19/23 08/28/23 Fluticasone Nasal [place] [Flonase 1 spray EA NOSTRIL DAILY 08/28/23 08/28/23 Nasal [place]] Ibuprofen [Motrin] 800 mg PO Q6H 08/28/23 08/28/23 Omeprazole [PriLOSEC] 40 mg PO DAILY 08/28/23 08/28/23 Orphenadrine [Norflex] 100 mg PO Q12H PRN 08/28/23 08/28/23 Previous Rx's Medication Instructions Recorded predniSONE 10 mg PO DIRECTED #30 tab 08/29/23 Methadone HCl 10 mg PO TID 30 Days #180 tab 10/15/23 Methadone HCl 10 mg PO TID 30 Days #180 tablet 10/15/23 Ondansetron Odt [Zofran Odt] 4 mg PO Q8HR PRN #10 tab 01/22/24 Allergies Allergy/AdvReac Type Severity Reaction Status Date / Time ampicillin Allergy Anaphylaxis Verified 01/22/24 13:50 cefaclor [From Ceclor] Allergy Rash/Hives Verified 01/22/24 13:50 Penicillins Allergy Anaphylaxis Verified 01/22/24 13:50 sulfamethoxazole Allergy Unknown Verified 01/22/24 13:50 [From Bactrim] trimethoprim [From Bactrim] Allergy Unknown Verified 01/22/24 13:50 codeine phosphate AdvReac SEVERE Verified 01/22/24 13:50 [From Tylenol-Codeine #3] CONSTIPATION duloxetine HCl AdvReac Confusion Verified 01/22/24 13:50 [From Cymbalta] pregabalin [From Lyrica] AdvReac Confusion Verified 01/22/24 13:50 PAPER TAPE Allergy Swelling,RA Uncoded 01/22/24 13:50 SH TYLENOL #4 AdvReac SEVERE Uncoded 01/22/24 13:50 CONSTIPATION Review of Systems ROS Statement: Those systems with pertinent positive or pertinent negative responses have been documented in the HPI. ROS Other: All systems not noted in ROS Statement are negative. Past Medical History Past Medical History: Asthma, Cancer, CVA/TIA, Fibromyalgia, GERD/Reflux, Hypertension, Memory Impairment, Seizure Disorder, Thyroid Disorder Additional Past Medical History / Comment(s): GALLSTONES,CERVICAL CANCER,EMPHYSEMA, chronic falls, GRAVE'S DISEASE, TIA 2012, MS, THYROID EYE DISEASE, DDD History of Any Multi-Drug Resistant Organisms: None Reported Past Surgical History: Appendectomy, Bladder Surgery, Hernia Repair, Hysterectomy, Orthopedic Surgery, Tubal Ligation Additional Past Surgical History / Comment(s): UMBILICAL HERNIA, HEMORRIODECTOMY, bladder SUSPENSION, Hand surgery bilateral , 2014 TUMOR REMOVED FROM NECK, THYROIDECTOMY, LT SHOULDER ROTATOR CUFF REPAIR-HAS PIN, CYST REMOVED FROM RT BREAST, COLONOSCOPY/EGD Past Anesthesia/Blood Transfusion Reactions: No Reported Reaction Past Psychological History: Anxiety, Bipolar, Depression, Panic Disorder, PTSD Smoking Status: Current every day smoker Past Alcohol Use History: None Reported Past Drug Use History: Methamphetamine, Opiates - Past Family History Mother Family Medical History: Cancer, Seizure Disorder Additional Family Medical History / Comment(s): Epilepsy Father Family Medical History: Cancer, Thyroid Disorder Additional Family Medical History / Comment(s): Skin cancer Brother(s) Family Medical History: Seizure Disorder Additional Family Medical History / Comment(s): Epilepsy General Exam Limitations: no limitations General appearance: alert, in no apparent distress Head exam: Present: atraumatic, normocephalic, normal inspection Eye exam: Present: normal appearance, PERRL, EOMI. Absent: scleral icterus, conjunctival injection, periorbital swelling ENT exam: Present: normal exam, mucous membranes moist Respiratory exam: Present: normal lung sounds bilaterally. Absent: respiratory distress, wheezes, rales, rhonchi, stridor Cardiovascular Exam: Present: regular rate, normal rhythm, normal heart sounds. Absent: systolic murmur, diastolic murmur, rubs, gallop, clicks GI/Abdominal exam: Present: soft. Absent: distended, tenderness, guarding, rebound, rigid Extremities exam: Present: normal inspection, full ROM, normal capillary refill. Absent: tenderness, pedal edema, joint swelling, calf tenderness Neurological exam: Present: alert, oriented X3 Psychiatric exam: Present: normal affect, normal mood Skin exam: Present: warm, dry, intact, normal color. Absent: rash Course Vital Signs 12/05/24 12/05/24 13:47 15:10 Temperature 98.6 F Pulse Rate 57 L 70 Respiratory 17 18 Rate Blood Pressure 113/73 105/62 O2 Sat by Pulse 95 99 Oximetry Medical Decision Making - Medical Decision Making Was pt. sent in by a medical professional or institution (NACHO Paz, BARREL RIB MATTING MACHINE OPERATOR, urgent care, hospital, or custodial...) When possible be specific @ -No Did you speak to anyone other than the patient for history (EMS, parent, family, police, friend...)? What history was obtained from this source @ -No Did you review nursing and triage notes (agree or disagree)? Why? @ -I reviewed and agree with nursing and triage notes Were old charts reviewed (outside hosp., previous admission, EMS record, old EKG, old radiological studies, urgent care reports/EKG's, custodial records)? Report findings @ -No old charts were reviewed Differential Diagnosis (chest pain, altered mental status, abdominal pain women, abdominal pain men, vaginal bleeding, weakness, fever, dyspnea, syncope, headache, dizziness, GI bleed, back pain, seizure, CVA, palpatations, mental health, musculoskeletal)? @ -Opioid withdrawal, chronic pain, methadone use, this list is not all inclusive EKG interpreted by me (3pts min.). @ -None X-rays interpreted by me (1pt min.). @ -None done CT interpreted by me (1pt min.). @ -None done U/S interpreted by me (1pt. min.). @ -None done What testing was considered but not performed or refused? (CT, X-rays, U/S, labs)? Why? @ -None What meds were considered but not given or refused? Why? @ -None Did you discuss the management of the patient with other professionals (professionals i.e. NACHO Paz, BARREL RIB MATTING MACHINE OPERATOR, lab, RT, psych nurse, social work nurse, locker room clerk, teacher, fire prevention officer, social work case manager)? Give summary @ -No Was smoking cessation discussed for >3mins.? @ -No Was critical care preformed (if so, how long)? @ -No Were there social determinants of health that impacted care today? How? (Homelessness, low income, unemployed, alcoholism, drug addiction, transportation, low edu. Level, literacy, decrease access to med. care, assisted, rehab)? @ -No Was there de-escalation of care discussed even if they declined (Discuss DNR or withdrawal of care, Hospice)? DNR status @ -No What co-morbidities impacted this encounter? (DM, HTN, Smoking, COPD, CAD, Cancer, CVA, ARF, Chemo, Hep., AIDS, mental health diagnosis, sleep apnea, morbid obesity)? @ -None Was patient admitted / discharged? Hospital course, mention meds given and route, prescriptions, significant lab abnormalities, going to OR and other pertinent info. @ -Discharge. Patient presented to emergency department for medication ma nagement. Patient reports a history of opioid abuse and has been off of her medication for multiple weeks. Patient reports today that she has pain "all over her body "she reports that this pain is typical of her chronic pain. Discussed with patient that we would not be able to prescribe her methadone but she could have a one-time dose. Advised her to follow-up with her to follow-up with her maintenance painter apprentice. She is understanding agreeable with plan. Patient stable at time of discharge. Case discussed with Undiagnosed new problem with uncertain prognosis? @ -No Drug Therapy requiring intensive monitoring for toxicity (Heparin, Nitro, Insulin, Cardizem)? @ -No Were any procedures done? @ -No Diagnosis/symptom? @ -Chronic pain, medication management Acute, or Chronic, or Acute on Chronic? @ -Acute Uncomplicated (without systemic symptoms) or Complicated (systemic symptoms)? @ -Uncomplicated Side effects of treatment? @ -No Exacerbation, Progression, or Severe Exacerbation? @ -No Poses a threat to life or bodily function? How? (Chest pain, [place], [place], pneumonia, PE, COPD, DKA, ARF, appy, cholecystitis, CVA, Diverticulitis, Homicidal, Suicidal, threat to staff... and all critical care pts) @ -No Disposition Clinical Impression: Chronic pain, Encounter for medication refill Disposition: HOME SELF-CARE Condition: Stable Additional Instructions: Please follow up with the pain clinic. Return to the emergency department for new or worsening symptoms. Prescriptions: Ondansetron Odt [Zofran Odt] 4 mg PO Q8HR PRN #10 tab PRN Reason: Nausea Is patient prescribed a controlled substance at d/c from ED?: No Referrals: Peter Urena [Primary Care Provider] - 1-2 days
[2024-01-22] MEDS: METHADONE 10 MG TAB PO STA (15:06)
[2024-01-22 15:12] VITALS: BP 105/62; PULSE 70; RESP 18
== END 2024-01-22 15:12 | disposition home or self-care (01) ==
LOC: EC 13:39
DX: G89.29 Other chronic pain (principal); Z76.0 Encounter for issue of repeat prescription; Z88.0 Allergy status to penicillin; Z88.2 Allergy status to sulfonamides; Z88.6 Allergy status to analgesic agent; Z88.8 Allergy status to other drugs, medicaments and biological substances; F17.200 Nicotine dependence, unspecified, uncomplicated
CPT/HCPCS: 99283; S0109